=== PATIENT | female | born 1995 | race Caucasian/White ===

== ENCOUNTER 2017-01-22 13:46 | Emergency (ER) | payer OTHER ==
[2017-01-22 13:51] VITALS: BP 130/62; PULSE 94; RESP 20; TEMP 97.5
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
--- NOTE | 2017-01-22 14:52 | XR ---
EXAMINATION TYPE: XR knee complete RT DATE OF EXAM: 01/22/2017 2:27 PM COMPARISON: NONE HISTORY: Pain and injury TECHNIQUE: 3 views FINDINGS: I see no fracture nor dislocation. Joint spaces are normal. There is no sign of joint effus ion. IMPRESSION: Normal right knee.
== END 2017-01-22 14:58 | disposition home or self-care (01) ==
LOC: EC 13:46
DX: M25.561 Pain in right knee (principal); Z87.891 Personal history of nicotine dependence; Z88.5 Allergy status to narcotic agent
CPT/HCPCS: 99283

== ENCOUNTER → 2017-06-06 | Outpatient (CLI) | payer OTHER ==
--- NOTE | 2017-06-06 08:58 | US ---
EXAMINATION TYPE: US abdomen complete DATE OF EXAM: 06/06/2017 COMPARISON: Previous study dated 01/22/2015. CLINICAL HISTORY: Abdominal Pain R10.84, Constipation K59.01. EXAM MEASUREMENTS: Liver Length: 12.1 cm Gallbladder Wall: 0.1 cm CBD: 0.3 cm Spleen: 9.1 cm Right Kidney: 10.6 x 3.3 x 4.8 cm Left Kidney: 11.2 x 4.9 x 5.2 cm Pancreas: visualized portions wnl Liver: wnl Gallbladder: no stones seen Evidence for sonographic French's sign: No CBD: wnl Spleen: wnl Right Kidney: No hydronephrosis or masses seen Left Kidney: No hydronephrosis or masses seen Upper IVC: wnl Abd Aorta: wnl Limited views of the pancreas are normal. The liver is normal in size without biliary dilatation. The gallbladder is normal without cholelithiasis. The gallbladder wall measures 1.3 mm. The distal co mmon hepatic duct measures 2.7 mm. The spleen is normal in size. Both kidneys appear normal. Visualized portions of aorta and IVC are normal. IMPRESSION: NORMAL ABDOMINAL ULTRASOUND.
== END | disposition home or self-care (01) ==
LOC: RADUSWWP 08:26
PROVIDERS: ATTEND Family Medicine
DX: R10.84 Generalized abdominal pain (principal); K59.01 Slow transit constipation
CPT/HCPCS: 76700

== ENCOUNTER → 2017-09-28 | Outpatient (CLI) | payer OTHER ==
--- NOTE | 2017-09-28 15:11 | CT ---
EXAMINATION TYPE: CT abdomen pelvis wo con DATE OF EXAM: 09/28/2017 COMPARISON: NONE HISTORY: Patient complains of LLQ pain, nausea, and microscopic hematuria. CT DLP: 1054 mGycm Automated exposure control for dose reduction was used. TECHNIQUE: Helical acquisition of images was performed from the lung bases through the pelvis. FINDINGS: LUNG BASES: No significant abnormality is appreciated. LIVER/GB: No significant abnormality is appreciated. PANCREAS: No significant abnormality is seen. SPLEEN: No significant abnormality is seen. ADRENALS: No significant abnormality is seen. KIDNEYS: Right kidney: There are 5 calcifications all measuring less than 5 mm. No hydronephrosis. Left kidney: There are 3 calcifications all measuring less than 5 mm. FREE AIR: No free air is visualized URINARY BLADDER: No significant abnormality is seen. ADENOPATHY: None visualized. OSSEOUS STRUCTURES: No significant abnormality is seen. BOWEL: No significant abnormality is seen. Appendix normal. OTHER: Trace amount of fluid in the pelvis. Soft tissue nodule on the right may represent a small ova bishop cyst measuring 2 cm. A follow-up ultrasound could be obtained. IMPRESSION: 1. Bilateral nephrolithiasis with no hydronephrosis. 2 possible ovarian cyst correlate with pelvic ul trasound as clinically warranted. Previous ultrasound 2016 didn't demonstrate an ovarian cyst.
== END | disposition home or self-care (01) ==
LOC: RADCTMAIN 14:31
PROVIDERS: ATTEND Physician Assistant
DX: N20.0 Calculus of kidney (principal); R10.824 Left lower quadrant rebound abdominal tenderness
CPT/HCPCS: 74176

== ENCOUNTER → 2018-04-19 | Outpatient (CLI) | payer BC ==
--- NOTE | 2018-04-19 13:59 | US ---
EXAMINATION TYPE: US abdomen complete DATE OF EXAM: 04/19/2018 COMPARISON: 06/06/2017 CLINICAL HISTORY: [id number] and pelvic pain R10.12Left upper quad. Left flank pain, nausea EXAM MEASUREMENTS: Liver Length: 13.4 cm Gallbladder Wall: 0.3 cm CBD: 0.2 cm Spleen: 9.2 cm Right Kidney: 10.1 x 4.0 x 4.6 cm Left Kidney: 10.3 x 4.9 x 4.1 cm Pancreas: Tail obscured by overlying bowel gas Liver: wnl Gallbladder: no evidence of stones Evidence for sonographic French's sign: no CBD: appears wnl Spleen: wnl Right Kidney: non-obstructing stone = 0.6cm mid/lower pole Left Kidney: non-obstructing stone mid = 0.7cm Upper IVC: wnl Abd Aorta: wnl The liver is homogenous. The intrahepatic portion of the IVC and proximal abdominal aorta are within normal limits. There is no evidence of cholelithiasis. Common bile duct is unremarkable. The visu alized portions of the pancreas are homogenous. The spleen is unremarkable. Kidneys are symmetric a nd free of hydronephrosis. No renal lesions are seen. IMPRESSION: 1. Nonobstructing nephrolithiasis.
== END | disposition home or self-care (01) ==
LOC: RADUSWWP 13:09
PROVIDERS: ATTEND Family Medicine
DX: N20.0 Calculus of kidney (principal); R10.12 Left upper quadrant pain
CPT/HCPCS: 76700

== ENCOUNTER 2019-03-17 17:39 | Emergency (ER) | payer BC ==
[2019-03-17 17:46] VITALS: BP 120/70; RESP 18; TEMP 98.4
[2019-03-17] MEDS ORDERED: SODIUM CHLORIDE 0.9% 1,000 ML IV ONE (18:05)
--- NOTE | 2019-03-17 18:13 | ED ---
Female Urogenital HPI - General Chief complaint: Vaginal Bleeding Stated complaint: /bleeding Time Seen by Provider: 03/17/19 17:49 Source: patient Mode of arrival: ambulatory Limitations: no limitations - History of Present Illness Initial comments: Patient is a 23-year-old female presenting for vaginal bleeding and . The patient states that she found out 3 days ago that she was after being seen at another hospital for chest pain. She currently denies any chest pain but states that about an hour prior to presentation, she started having vaginal bleeding. She denies any abdominal pain or other vaginal discharge. She denies any nausea/I/diarrhea or fevers/chills. She also states that she has not seen an OB doctor for this. - Related Data Previous Rx's Medication Instructions Recorded Ondansetron Odt [Zofran Odt] 4 mg PO Q8HR PRN #12 tab 02/10/16 Allergies Allergy/AdvReac Type Severity Reaction Status Date / Time acetaminophen [From Vicodin] AdvReac Nausea & Verified 03/17/19 17:46 Vomiting hydrocodone bitartrate AdvReac Nausea & Verified 03/17/19 17:46 [From Vicodin] Vomiting morphine AdvReac Nausea & Verified 03/17/19 17:46 Vomiting Review of Systems ROS Statement: Those systems with pertinent positive or pertinent negative responses have been documented in the HPI. Constitutional: Negative for chills, fatigue and fever. HENT: Negative for congestion. Respiratory: Negative for chest tightness, shortness of breath and wheezing. Negative for cough Cardiovascular: Negative for chest pain and palpitations. Gastrointestinal: Negative for abdominal pain. Negative for abdominal distention, diarrhea, nausea and vomiting. Genitourinary: Negative for dysuria. Positive for vaginal bleeding Musculoskeletal: Negative for back pain, neck pain and neck stiffness. Skin: Negative for color change. Neurological: Negative for dizziness, speech difficulty, weakness and light- headedness. Psychiatric/Behavioral: Negative for agitation and confusion. Negative for anxiety ROS Other: All systems not noted in ROS Statement are negative. Past Medical History Past Medical History: No Reported History History of Any Multi-Drug Resistant Organisms: None Reported Past Surgical History: No Surgical Hx Reported Past Psychological History: No Psychological Hx Reported Smoking Status: Former smoker Past Alcohol Use History: None Reported Past Drug Use History: None Reported General Exam - General Exam Comments Initial Comments: Constitutional: Pt appears well-developed and well-nourished. No distress. Head: Normocephalic and atraumatic. Eyes: EOM are normal. Neck: Normal range of motion. Neck supple. Cardiovascular: Tachycardia present, regular rhythm, S1 normal, S2 normal and normal heart sounds. Exam reveals no gallop and no friction rub. No murmur heard. Pulmonary/Chest: Effort normal and breath sounds normal. No tachypnea and no bradypnea. No respiratory distress. No wheezes or rales noted. Abdominal: Soft. Bowel sounds are normal. Pt exhibits no shifting dullness, no distension, no pulsatile liver, no fluid wave, no abdominal bruit and no ascites. There is no rigidity, no rebound, no guarding, no tenderness at McBu rney's point and negative French's sign. There is no tenderness. Musculoskeletal: Normal range of motion. Neurological: Pt is alert and oriented to person, place, and time. No cranial nerve deficit. Skin: Skin is warm and dry. No rash noted. Pt is not diaphoretic. No erythema. No pallor. Psychiatric: Pt has a normal mood and affect. Pt behavior is normal. Thought content normal. Limitations: no limitations Course Vital Signs 03/17/19 17:43 Temperature 98.4 F Pulse Rate 107 H Respiratory 18 Rate Blood Pressure 120/70 O2 Sat by Pulse 99 Oximetry Medical Decision Making - Medical Decision Making Laboratory studies showed a hemoglobin was stable at 15.2 and there is no evidence of urinary tract infection, acute kidney injury and beta hCG was less than 2.4. Because of this, ultrasound was not performed and patient was advised to follow up with PCP/global creative chairman in the next couple days as this vaginal bleeding could represent a spontaneous that is nearly completed or abnormal menorrhea and she does have a history of PCOS.. - Lab Data Result diagrams: 03/17/19 18:45 03/17/19 18:45 Lab Results 03/17/19 03/17/19 03/17/19 Range/Units 18:45 18:45 18:45 WBC 9.8 (3.8-10.6) k/uL RBC 5.15 (3.80-5.40) m/uL Hgb 15.2 (11.4-16.0) gm/dL Hct 47.3 H (34.0-46.0) % MCV 91.8 (80.0-100.0) fL MCH 29.6 (25.0-35.0) pg MCHC 32.2 (31.0-37.0) g/dL RDW 13.9 (11.5-15.5) % Plt Count 410 (150-450) k/uL Neutrophils % 70 % Lymphocytes % 20 % Monocytes % 4 % Eosinophils % 3 % Basophils % 1 % Neutrophils # 6.9 (1.3-7.7) k/uL Lymphocytes # 2.0 (1.0-4.8) k/uL Monocytes # 0.4 (0-1.0) k/uL Eosinophils # 0.3 (0-0.7) k/uL Basophils # 0.1 (0-0.2) k/uL PT 9.8 (9.0-12.0) sec INR 0.9 (<1.2) APTT 25.2 (22.0-30.0) sec Sodium 140 (137-145) mmol/L Potassium 4.3 (3.5-5.1) mmol/L Chloride 105 (98-107) mmol/L Carbon Dioxide 26 (22-30) mmol/L Anion Gap 9 mmol/L BUN 11 (7-17) mg/dL Creatinine 0.74 (0.52-1.04) mg/dL Est GFR (CKD-EPI)AfAm >90 (>60 ml/min/1.73 sqM) Est GFR (CKD-EPI)NonAf >90 (>60 ml/min/1.73 sqM) Glucose 80 (74-99) mg/dL Calcium 10.0 (8.4-10.2) mg/dL HCG, Quant <2.4 mIU/mL Urine Color Urine Appearance (Clear) Urine pH (5.0-8.0) Ur Specific [place] (1.001-1.035) Urine Protein (Negative) Urine Glucose (UA) (Negative) Urine Ketones (Negative) Urine Blood (Negative) Urine Nitrite (Negative) Urine Bilirubin (Negative) Urine Urobilinogen (<2.0) mg/dL Ur Leukocyte Esterase (Negative) Urine RBC (0-5) /hpf Urine WBC (0-5) /hpf Ur Squamous Epith Cells (0-4) /hpf Urine Bacteria (None) /hpf Urine Mucus (None) /hpf Blood Type Blood Type Recheck Antibody Screen Spec Expiration Date 03/17/19 03/17/19 Range/Units 18:45 19:06 WBC (3.8-10.6) k/uL RBC (3.80-5.40) m/uL Hgb (11.4-16.0) gm/dL Hct (34.0-46.0) % MCV (80.0-100.0) fL MCH (25.0-35.0) pg MCHC (31.0-37.0) g/dL RDW (11.5-15.5) % Plt Count (150-450) k/uL Neutrophils % % Lymphocytes % % Monocytes % % Eosinophils % % Basophils % % Neutrophils # (1.3-7.7) k/uL Lymphocytes # (1.0-4.8) k/uL Monocytes # (0-1.0) k/uL Eosinophils # (0-0.7) k/uL Basophils # (0-0.2) k/uL PT (9.0-12.0) sec INR (<1.2) APTT (22.0-30.0) sec Sodium (137-145) mmol/L Potassium (3.5-5.1) mmol/L Chloride (98-107) mmol/L Carbon Dioxide (22-30) mmol/L Anion Gap mmol/L BUN (7-17) mg/dL Creatinine (0.52-1.04) mg/dL Est GFR (CKD-EPI)AfAm (>60 ml/min/1.73 sqM) Est GFR (CKD-EPI)NonAf (>60 ml/min/1.73 sqM) Glucose (74-99) mg/dL Calcium (8.4-10.2) mg/dL HCG, Quant mIU/mL Urine Color Light Yellow Urine Appearance Clear (Clear) Urine pH 6.5 (5.0-8.0) Ur Specific [place] 1.006 (1.001-1.035) Urine Protein Negative (Negative) Urine Glucose (UA) Negative (Negative) Urine Ketones Negative (Negative) Urine Blood Small H (Negative) Urine Nitrite Negative (Negative) Urine Bilirubin Negative (Negative) Urine Urobilinogen <2.0 (<2.0) mg/dL Ur Leukocyte Esterase Trace H (Negative) Urine RBC <1 (0-5) /hpf Urine WBC 5 (0-5) /hpf Ur Squamous Epith Cells 2 (0-4) /hpf Urine Bacteria Rare H (None) /hpf Urine Mucus Rare H (None) /hpf Blood Type O Positive Blood Type Recheck CABO Indicated Antibody Screen NEGATIVE Spec Expiration Date 03/20/2019 - 2341 Disposition Clinical Impression: Vaginal bleeding Disposition: HOME SELF-CARE Condition: Good Instructions (If sedation given, give patient instructions): Menstruation (ED) Is patient prescribed a controlled substance at d/c from ED?: No Referrals: None,Stated [Primary Care Provider] - 1-2 days Time of Disposition: 19:54
[2019-03-17 19:08] LABS: Basophils # (A) 0.1 k/uL (0-0.2); Basophils % (A) 1 %; Eosinophils # (A) 0.3 k/uL (0-0.7); Eosinophils % (A) 3 %; HCT 47.3 % (34.0-46.0); HGB 15.2 gm/dL (11.4-16.0); Lymphocytes % (A) 20 %; MCH 29.6 pg (25.0-35.0); MCHC 32.2 g/dL (31.0-37.0); MCV 91.8 fL (80.0-100.0); Mean Platelet Volume 6.9; Monocytes # (A) 0.4 k/uL (0-1.0); Monocytes % (A) 4 %; Neutrophils # (A) 6.9 k/uL (1.3-7.7); Neutrophils % (A) 70 %; Platelet Count 410 k/uL (150-450); RBC 5.15 m/uL (3.80-5.40); RDW 13.9 % (11.5-15.5); WBC 9.8 k/uL (3.8-10.6)
[2019-03-17 19:18] LABS: Anion Gap 9 mmol/L; Blood Urea Nitrogen 11 mg/dL (7-17); Carbon Dioxide 26 mmol/L (22-30); Chloride 105 mmol/L (98-107); Glucose 80 mg/dL (74-99); Potassium 4.3 mmol/L (3.5-5.1); Sodium 140 mmol/L (137-145)
[2019-03-17 19:32] LABS: Appearance,Urine Clear (Clear); Bacteria,Urine Rare /hpf; Bilirubin,Urine Negative (Negative); Blood,Urine Small (Negative); Color,Urine Light Yellow; Glucose,Urine (UA) Negative (Negative); Ketones,Urine Negative (Negative); Leukocyte Esterase,Urine Trace (Negative); Mucus,Urine Rare /hpf; Nitrite,Urine Negative (Negative); PH, Urine 6.5 (5.0-8.0); Protein,Urine Negative (Negative); RBC,Urine <1 /hpf (0-5); Specific Gravity,Urine 1.006 (1.001-1.035); Squamous Epithelial Cell,Urine 2 /hpf (0-4); Urobilinogen,Urine <2.0 mg/dL (<2.0); WBC,Urine 5 /hpf (0-5)
[2019-03-17 19:43] LABS: HCG,Quantitative Serum <2.4 mIU/mL
[2019-03-17 19:48] LABS: INR 0.9 (<1.2); Partial Thromboplastin Time 25.2 sec (22.0-30.0); Prothrombin Time 9.8 sec (9.0-12.0)
[2019-03-17 20:04] VITALS: PULSE 98
== END 2019-03-17 20:04 | disposition home or self-care (01) ==
LOC: EC 17:39
DX: O20.9 Hemorrhage in early pregnancy, unspecified (principal); O99.89 Other specified diseases and conditions complicating pregnancy, childbirth and the puerperium; R00.0 Tachycardia, unspecified; Z3A.01 Less than 8 weeks gestation of pregnancy; Z87.891 Personal history of nicotine dependence; Z88.5 Allergy status to narcotic agent; Z88.6 Allergy status to analgesic agent
CPT/HCPCS: 36415; 80048; 81001; 84702; 85025; 85610; 85730; 86850; 86900; 86901; 96360; 99284

== ENCOUNTER 2021-04-08 18:27 | Outpatient (CLI) | payer BC ==
[2021-04-08] MEDS ORDERED: LABETALOL 100 MG TAB PO STA (19:08)
[2021-04-08 19:33] LABS: Appearance,Urine Cloudy (Clear); Bacteria,Urine Rare /hpf; Bilirubin,Urine Negative (Negative); Blood,Urine Small (Negative); Budding Yeast,Urine Occasional /hpf; Color,Urine Yellow; Glucose,Urine (UA) Negative (Negative); Hyaline Casts,Urine 7 /lpf (0-2); Ketones,Urine Negative (Negative); Leukocyte Esterase,Urine Negative (Negative); Mucus,Urine Rare /hpf; Nitrite,Urine Negative (Negative); Protein,Urine 3+ (Negative); RBC,Urine 2 /hpf (0-5); Specific Gravity,Urine 1.015 (1.001-1.035); Squamous Epithelial Cell,Urine 8 /hpf (0-4); Urobilinogen,Urine <2.0 mg/dL (<2.0); WBC,Urine 8 /hpf (0-5)
[2021-04-08 19:37] LABS: Basophils % (A) 0 %; Eosinophils % (A) 0 %; HCT 46.5 % (34.0-46.0); HGB 14.9 gm/dL (11.4-16.0); Lymphocytes # (A) 2.1 k/uL (1.0-4.8); Lymphocytes % (A) 16 %; MCH 28.6 pg (25.0-35.0); MCV 89.1 fL (80.0-100.0); Mean Platelet Volume 7.7; Monocytes # (A) 0.6 k/uL (0-1.0); Monocytes % (A) 4 %; Neutrophils # (A) 10.5 k/uL (1.3-7.7); Neutrophils % (A) 78 %; Platelet Count 307 k/uL (150-450); RBC 5.22 m/uL (3.80-5.40); RDW 14.6 % (11.5-15.5); WBC 13.5 k/uL (3.8-10.6)
[2021-04-08 19:41] LABS: Creatinine,Urine Random 96.5 mg/dL
[2021-04-08 19:44] LABS: ALT 14 U/L (4-34); AST 27 U/L (14-36); African American GFR (CKD) >90 (>60 ml/min/1.73 sqM); Blood Urea Nitrogen 13 mg/dL (7-17); LDH 633 U/L (313-618); Non-African American GFR(CKD) >90 (>60 ml/min/1.73 sqM)
[2021-04-08] MEDS ORDERED: hydrALAZINE HCL 20 MG/ML 1 ML VIAL IV ONE (20:22)
[2021-04-08] MEDS ORDERED: CALCIUM GLUCONATE 1 GM/10 ML VIAL IV PRN (20:41)
[2021-04-08] MEDS ORDERED: hydrALAZINE HCL 20 MG/ML 1 ML VIAL IVP PRN ×2 (20:41)
[2021-04-08] MEDS ORDERED: LABETALOL 5 MG/ML VIAL MDV IVP PRN ×2 (20:41)
[2021-04-08] MEDS ORDERED: MAGNESIUM SULFATE-WATER PMX 4 GM in WATER FOR INJECTION 1 100ML.BAG IVPB ONE (20:41)
[2021-04-08] MEDS ORDERED: BETAMET ACET-BETAMETH SOD PHOS 6 MG/ML MDV IM SCH (20:45)
[2021-04-08] MEDS ORDERED: MAGNESIUM SULFATE-WATER PMX 20 GM in WATER FOR INJECTION 1 500ML.BAG IV SCH (20:45)
--- NOTE | 2021-04-08 21:35 | P.HPOB ---
History of Present Illness H&P Date: 04/08/21 Chief Complaint: Hypertension This is a 25-year-old 2 para 0010 woman with an estimated due date of 05/22/2021 based on LMP consistent with 7 week ultrasound. She presents at 33 weeks' gestation complaining of increased swelling in her face and elevated blood pressure earlier today at work. 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 She returned home and proceeded to labor and delivery triage this evening. Upon evaluation in labor and delivery triage she was noted to be hypertensive with blood pressures ranging from the 150/90 to 185/108. She has no previous history of hypertension in the . She reports feeling "not right" Throughout the day but denies specifically headaches, visual changes, nausea, vomiting, abdominal pain, vaginal bleeding or contractions. Upon further evaluation she was found to have 3+ protein on urinalysis and a protein creatinine ratio that lab reports is too high to calculate. Uric acid is 8.0, LDH 633. Platelets 307 and normal AST and ALTs. Obstetric history: Spontaneous miscarriage first trimester 2015 Laboratory data: Blood type O+, antibody screen negative, rubella immune, VDRL nonreactive, hepatitis B surface antigen negative, HIV negative, gonorrhea and clinic cultures negative, 1 hour glucose tolerance testing 149, three-hour glucose tolerance testing within normal limits. Review of Systems Constitutional: Reports fatigue, Denies chronic headaches Eyes: denies blurred vision, denies diplopia, denies loss of peripheral vision, denies loss of vision, denies tunnel vision/blind spots Cardiovascular: Denies chest pain, Denies irregular heart beat, Denies lightheadedness, Denies palpitations, Denies shortness of breath Respiratory: Reports snoring Gastrointestinal: Denies abdominal pain, Denies BRBPR, Denies heartburn, Denies nausea, Denies vomiting Genitourinary: Denies abnormal vaginal bleeding, Denies dysuria Musculoskeletal: Reports low back pain Integumentary: Denies rash Neurological: Denies double vision, Denies visual changes Psychiatric: Reports depression Hematologic/Lymphatic: Denies easy bleeding, Denies easy bruising Past Medical History Past Medical History: No Reported History Additional Past Medical History / Comment(s): Depression, obesity, PCO S History of Any Multi-Drug Resistant Organisms: None Reported Additional Past Surgical History / Comment(s): [place] teeth removal Past Anesthesia/Blood Transfusion Reactions: No Reported Reaction Past Psychological History: Anxiety, Depression Smoking Status: Never smoker Past Alcohol Use History: None Reported Past Drug Use History: None Reported Medications and Allergies Home Medications Medication Instructions Recorded Confirmed Type Ondansetron Odt [Zofran Odt] 4 mg PO Q8HR PRN #12 tab 02/10/16 Rx Allergies Allergy/AdvReac Type Severity Reaction Status Date / Time acetaminophen [From Vicodin] AdvReac Nausea & Verified 04/08/21 18:48 Vomiting hydrocodone bitartrate AdvReac Nausea & Verified 04/08/21 18:48 [From Vicodin] Vomiting morphine AdvReac Nausea & Verified 04/08/21 18:48 Vomiting Exam Intake and Output 04/08/21 04/08/21 04/08/21 06:59 14:59 22:59 Other: Weight 107.501 kg This is an obese, female who is visibly gravid. No obvious distress. HEENT exam is normal for some dermatitis of the lower face. No palpable thyromegaly or lymphadenopathy. The lungs are clear to auscultation bilaterally and the heart is a regular rate and rhythm. The abdomen is obese, soft and gravid with fundal height consistent with gestational age. Extremities with 2+ pitting edema, 3+ deep tendon reflexes and no clonus. Mood and affect normal. heart tones are category 1. No contractions. Results Result Diagrams: 04/08/21 19:25 04/08/21 19:25 Abnormal Lab Results - Last 24 Hours (Table) 04/08/21 04/08/21 04/08/21 Range/Units 18:30 19:25 19:25 WBC 13.5 H (3.8-10.6) k/uL Hct 46.5 H (34.0-46.0) % Neutrophils # 10.5 H (1.3-7.7) k/uL Uric Acid 8.0 H (3.7-7.4) mg/dL Lactate Dehydrogenase 633 H (313-618) U/L Urine Appearance Cloudy H (Clear) Urine Protein 3+ H (Negative) Urine Blood Small H (Negative) Urine WBC 8 H (0-5) /hpf Ur Squamous Epith Cells 8 H (0-4) /hpf Urine Bacteria Rare H (None) /hpf Hyaline Casts 7 H (0-2) /lpf Urine Mucus Rare H (None) /hpf Urine Yeast (Budding) Occasional H (None) /hpf Assessment and Plan (1) Severe preeclampsia Current Visit: Yes Status: Acute Code(s): O14.10 - SEVERE PRE-ECLAMPSIA, UNSPECIFIED TRIMESTER SNOMED Code(s): 00007098 (2) 33 weeks gestation of Current Visit: Yes Status: Acute Code(s): Z3A.33 - 33 WEEKS GESTATION OF SNOMED Code(s): 19048352 (3) Obesity Current Visit: Yes Status: Acute Code(s): E66.9 - OBESITY, UNSPECIFIED SNOMED Code(s): 612252044 Plan: This is a 25-year-old 2 para 0 woman at 33-5/7 weeks gestation with severe preeclampsia based on blood pressure criteria. She has 3+ protein on urine dip and protein creatinine ratio was not calculated secondary to elevated protein per the lab. She has responded to IV hydralazine with blood pressures currently in the 140s over 90s. She has been loaded on 4 mg of magnesium sulfate. She has received her first dose of 12 mg of Celestone. Group B strep status is unknown. status is currently reassuring by external monitoring. No evidence of labor. Secondary to severe preeclampsia remote from term I have recommended she be transferred to a facility with NICU for probable delivery. Risks of the transfer were reviewed with the patient and include worsening high blood pressure and eclampsia. I believe this risk to be low on her current treatments. I discussed the case with the maternal medicine attending at [facility], Dr. Nicole, who accepts the patient in transport. Please contact my office in the morning for us to fax her complete record as it is not available in its entirety on labor and delivery. Office number is [phone]. Time with Patient: Greater than 30
[2021-04-08 23:36] VITALS: RESP 16
[2021-04-08 23:37] VITALS: BP 134/68; PULSE 86
[2021-04-08 23:53] VITALS: TEMP 98.1
== END 2021-04-08 22:30 ==
LOC: FBPOP 18:27
PROVIDERS: ATTEND Obstetrics & Gynecology Obstetrics
DX: O14.13 Severe pre-eclampsia, third trimester (principal); O99.213 Obesity complicating pregnancy, third trimester; E66.9 Obesity, unspecified; Z3A.33 33 weeks gestation of pregnancy; Z88.6 Allergy status to analgesic agent; Z88.5 Allergy status to narcotic agent; F32.9 Major depressive disorder, single episode, unspecified; F41.9 Anxiety disorder, unspecified
CPT/HCPCS: 82570; 84156; 82565; 83615; 84450; 84460; 84520; 84550; 85025; 81001; J0360; J3475 ×2; J0702

== ENCOUNTER 2022-09-18 16:58 | Emergency (ER) | payer BC ==
[2022-09-18] MEDS ORDERED: ACETAMINOPHEN TAB 325 MG TAB PO STA (18:00)
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
[2022-09-18 19:18] LABS: Basophils % (A) 0 %; Eosinophils % (A) 0 %; HCT 40.8 % (34.0-46.0); HGB 13.6 gm/dL (11.4-16.0); Lymphocytes # (A) 1.2 k/uL (1.0-4.8); Lymphocytes % (A) 9 %; MCH 30.1 pg (25.0-35.0); MCHC 33.4 g/dL (31.0-37.0); MCV 90.1 fL (80.0-100.0); Mean Platelet Volume 7.4; Monocytes # (A) 0.5 k/uL (0-1.0); Monocytes % (A) 4 %; Neutrophils # (A) 11.4 k/uL (1.3-7.7); Neutrophils % (A) 87 %; Platelet Count 360 k/uL (150-450); RBC 4.53 m/uL (3.80-5.40); WBC 13.2 k/uL (3.8-10.6)
[2022-09-18 19:31] LABS: ALT 16 U/L (4-34); AST 21 U/L (14-36); African American GFR (CKD) >90 (>60 ml/min/1.73 sqM); Albumin 3.7 g/dL (3.5-5.0); Alkaline Phosphatase 97 U/L (38-126); Anion Gap 12 mmol/L; Blood Urea Nitrogen 9 mg/dL (7-17); Calcium 9.4 mg/dL (8.4-10.2); Carbon Dioxide 23 mmol/L (22-30); Chloride 99 mmol/L (98-107); Glucose 77 mg/dL (74-99); Non-African American GFR(CKD) >90 (>60 ml/min/1.73 sqM); Potassium 4.1 mmol/L (3.5-5.1); Sodium 134 mmol/L (137-145); Total Bilirubin 0.2 mg/dL (0.2-1.3); Total Protein 6.9 g/dL (6.3-8.2)
[2022-09-18 19:38] LABS: INR 0.8 (<1.2); Partial Thromboplastin Time 21.5 sec (22.0-30.0); Prothrombin Time 9.5 sec (9.0-12.0)
--- NOTE | 2022-09-18 22:56 | US ---
EXAMINATION TYPE: US OB >= 14 wk fetus DATE OF EXAM: 09/18/2022 COMPARISON: None CLINICAL HISTORY: fall injury TECHNIQUE: GESTATIONAL AGE / DATING Physician Established: (15 weeks/5 days) EDC: 03-07-23 Dates by LMP: (15 weeks/5 days) EDC: 03-07-23 Dates by First Scan: not available Dates by Current Scan: (14 weeks/5 days) EDC: 03-14-23 SURVEY IUP: Single PLACENTA: Posterior 3.1 x 2.1 x 3.2 complex placental mass PREVIA: Low Lying NANCY: 11 cm CERVICAL LENGTH (transabdominal: norm > 3.0cm): 4.3 cm BIOMETRY PRESENTATION: Vertex BPD: 2.8 cm 15 weeks / 1 days HC: 10.6 cm 15 weeks / 0 days AC: 8.1 cm 14 weeks / 3 days FL: 1.5 cm 14 weeks / 4 days ESTIMATED WEIGHT IN GRAMS: 100 grams ESTIMATED WEIGHT IN LBS/OZ: 0 lbs. 4 oz. WEIGHT PERCENTAGE BASED ON ESTABLISHED DATES: <3% HC/AC: 1.3 FL/AC: 18.8 HEART RATE: 143 bpm RHYTHM: Normal MATERNAL WALL MEASUREMENT: 4.0 cm from skin to anterior uterine wall (if exam limited due to body hab itus). IMPRESSION: There is hypoechoic area measuring 2 x 2.5 cm in the placenta that could be a placental smallwood. No evid ence of placenta previa or abruption. The ultrasound gestational age is 14 weeks and 5 days.
[2022-09-18 23:32] VITALS: BP 105/60; PULSE 84; RESP 20; TEMP 98.2
== END 2022-09-18 23:30 | disposition home or self-care (01) ==
LOC: EC 16:58
DX: R55 Syncope and collapse (principal); J45.909 Unspecified asthma, uncomplicated; F12.90 Cannabis use, unspecified, uncomplicated; Z88.6 Allergy status to analgesic agent; Z88.5 Allergy status to narcotic agent; W19.XXXA Unspecified fall, initial encounter
CPT/HCPCS: 36415; 76805; 80053; 84484; 85025; 85610; 85730; 93005; 99285

== ENCOUNTER 2023-01-07 10:44 | Outpatient (CLI) | payer BC ==
[2023-01-07] MEDS: LACTATED RINGERS 1,000 ML IV SCH ×2 (11:41→12:40)
[2023-01-07 12:34] LABS: Appearance,Urine Cloudy (Clear); Bacteria,Urine Rare /hpf; Bilirubin,Urine Negative (Negative); Blood,Urine Large (Negative); Color,Urine Light Red; Glucose,Urine (UA) Negative (Negative); Ketones,Urine Trace (Negative); Leukocyte Esterase,Urine Small (Negative); Mucus,Urine Few /hpf; Nitrite,Urine Negative (Negative); Protein,Urine 1+ (Negative); RBC,Urine >182 /hpf (0-5); Specific Gravity,Urine 1.021 (1.001-1.035); Squamous Epithelial Cell,Urine 7 /hpf (0-4); Urobilinogen,Urine <2.0 mg/dL (<2.0); WBC,Urine 5 /hpf (0-5)
[2023-01-07 12:58] VITALS: BP 137/74; PULSE 107; RESP 16; TEMP 97.4
--- NOTE | 2023-03-06 10:06 | P.MSEPDOC ---
Presenting Problems - Arrival Data Date of Arrival on Unit: 01/07/23 Time of Arrival on Unit: 10:44 Mode of Transport: Ambulatory - Complaint OB-Reason for Admission/Chief Complaint: Observation/Evaluation Comment: Pt states bleeding when wiping and blood in toliet Medical History - Information : 2 Para: 1 Number of Living Children: 1 - Gestational Age Gestational Age by RACHEL (wks/days): 31 Weeks and 3 Days - History Complications: Prior Review of Systems - Review of Systems Constitutional: No problems Breast: No problems ENT: No problems Cardiovascular: No problems Respiratory: No problems Gastrointestinal: No problems Genitourinary: No problems Musculoskeletal: No problems Neurological: No problems Skin: No problems Comment: Pt denies dysuria; urine sample provided orion in color Vital Signs - Temperature Temperature: 97.4 F Temperature Source: Temporal Artery Scan - Pulse Right Sitting Brachial Pulse Rate: 107 Pulse Assessment Method: Automatic Cuff - Respirations Respiratory Rate: 16 Oxygen Delivery Method: Room Air O2 Sat by Pulse Oximetry: 100 - Blood Pressure Right Arm Sitting Blood Pressure: 137/74 Blood Pressure Mean: 95 Blood Pressure Source: Automatic Cuff Medical Screen Scoring - Cervical Exam Dilation (cm): 0 Effacement (%): 0 - Assessment - Baby A Baseline FHR: 150 Heart Rate - NICHD Category: Category I (Normal) NST: Reactive Physician Notification - Physician Notified Physician Notified Date: 01/07/23 Physician Notified Time: 11:40 Physician: Anastasiia Villanueva New Order Received: Yes - Notification Comment Comment: Spk c\Dr. Villanueva, advsd , 31 01/18, c/o bleeding and period like cramps x 3 hours. Sterile spec exam-no bleeding present, white discharge. Urine provided orion in color. Pt denies dysuria. Pt states recent GI illness, no N/V/D x 3 days. Ab soft & nontender; reactive FHT. Order rec'd to send UA, hydrate c\1L LR. 1240-Cld Dr. Villanueva to review UA and pt status. Order rec'd to send UA for C&S, d/c pt home c\orders to increase PO fluids and pelvic rest. Maternal Triage Index - Maternal Triage Index Presenting for scheduled procedure w/no complaint: No - Stat/Priority 1 Stat Priority 1: No - Urgent/Priority 2 Urgent Priority 2: No - Prompt/Priority 3 Prompt Priority 3: No - Non-Urgent/Priority 4 Non-Urgent Priority 4: Yes Criteria Met for Priority 4: Hematuria Disposition - Disposition OB Disposition: Discharge to home, Written follow up instructions reviewed Discharge Date: 01/07/23 Discharge Time: 12:50 I agree with the RN Medical Screening Exam: Yes Case reviewed; plan agreed upon as documented in EMR&OBIX.: Yes Diagnosis: DEHYDRATION
== END 2023-01-07 12:50 | disposition home or self-care (01) ==
LOC: FBPOP 10:44
PROVIDERS: ATTEND Obstetrics & Gynecology Obstetrics
DX: O99.283 Endocrine, nutritional and metabolic diseases complicating pregnancy, third trimester (principal); E86.0 Dehydration; O34.219 Maternal care for unspecified type scar from previous cesarean delivery; Z3A.31 31 weeks gestation of pregnancy; Z88.8 Allergy status to other drugs, medicaments and biological substances; Z88.5 Allergy status to narcotic agent; Z87.891 Personal history of nicotine dependence
CPT/HCPCS: 59025; 81001; 87086; 96360; 99213; 99214

== ENCOUNTER 2023-02-02 18:37 | Outpatient (CLI) | payer BC ==
[2023-02-02 20:33] LABS: Basophils % (A) 0 %; Eosinophils # (A) 0.1 k/uL (0-0.7); Eosinophils % (A) 1 %; HCT 35.7 % (34.0-46.0); HGB 11.6 gm/dL (11.4-16.0); Lymphocytes # (A) 2.1 k/uL (1.0-4.8); Lymphocytes % (A) 19 %; MCH 27.8 pg (25.0-35.0); MCHC 32.5 g/dL (31.0-37.0); MCV 85.5 fL (80.0-100.0); Mean Platelet Volume 7.2; Monocytes # (A) 0.5 k/uL (0-1.0); Monocytes % (A) 5 %; Neutrophils # (A) 8.2 k/uL (1.3-7.7); Neutrophils % (A) 74 %; Platelet Count 352 k/uL (150-450); RBC 4.17 m/uL (3.80-5.40); RDW 13.7 % (11.5-15.5); WBC 11.2 k/uL (3.8-10.6)
[2023-02-02 20:42] LABS: ALT 22 U/L (4-34); AST 22 U/L (14-36); African American GFR (CKD) >90 (>60 ml/min/1.73 sqM); Blood Urea Nitrogen 5 mg/dL (7-17); LDH 187 U/L (120-246); Magnesium 1.7 mg/dL (1.6-2.3); Non-African American GFR(CKD) >90 (>60 ml/min/1.73 sqM); Uric Acid 3.8 mg/dL (3.7-7.4)
[2023-02-02 20:48] LABS: Appearance,Urine Clear (Clear); Bilirubin,Urine Negative (Negative); Blood,Urine Moderate (Negative); Calcium Oxalate Crystals,Urine Occasional /hpf; Color,Urine Yellow; Glucose,Urine (UA) Negative (Negative); Ketones,Urine Negative (Negative); Leukocyte Esterase,Urine Negative (Negative); Mucus,Urine Rare /hpf; Nitrite,Urine Negative (Negative); PH, Urine 6.5 (5.0-8.0); Protein,Urine Negative (Negative); RBC,Urine 46 /hpf (0-5); Specific Gravity,Urine 1.012 (1.001-1.035); Squamous Epithelial Cell,Urine 1 /hpf (0-4); Urobilinogen,Urine <2.0 mg/dL (<2.0); WBC,Urine 1 /hpf (0-5)
[2023-02-02 20:51] LABS: Creatinine,Urine Random 84.6 mg/dL; Protein/Creatinine Ratio,Urine 0.225
[2023-02-02 20:53] LABS: Creatinine,Urine Random 84.7 mg/dL
[2023-02-02 21:37] LABS: INR 0.9 (<1.2); Partial Thromboplastin Time 22.3 sec (22.0-30.0); Prothrombin Time 9.3 sec (9.0-12.0)
[2023-02-02 22:00] VITALS: BP 140/80; PULSE 104; RESP 16; TEMP 97.3
--- NOTE | 2023-03-06 10:17 | P.MSEPDOC ---
Presenting Problems - Arrival Data Date of Arrival on Unit: 02/02/23 Time of Arrival on Unit: 18:37 Mode of Transport: Ambulatory - Complaint OB-Reason for Admission/Chief Complaint: PIH Comment: pt to triage co sudden swelling in legs and face that started around 1500. today, dizziness that started around 1200 today and pressure in chest since last night. Pt denies cough or sob Medical History - Information : 3 Para: 1 Term: 1 : 0 Abortions: Spontaneous or Elective: 1 Number of Living Children: 1 - Gestational Age Gestational Age by RACHEL (wks/days): 35 Weeks and 1 Days - History Comment: history of preeclampsia with previous Review of Systems - Review of Systems Constitutional: No problems Breast: No problems ENT: No problems Cardiovascular: No problems Respiratory: No problems Gastrointestinal: No problems Genitourinary: No problems Musculoskeletal: No problems Neurological: No problems Skin: No problems Vital Signs - Temperature Temperature: 97.3 F Temperature Source: Temporal Artery Scan - Pulse Pulse Oximetery Pulse Rate: 104 Pulse Assessment Method: Automatic Cuff - Respirations Respiratory Rate: 16 Oxygen Delivery Method: Room Air - Blood Pressure Right Arm Blood Pressure: 140/80 Blood Pressure Mean: 100 Blood Pressure Source: Automatic Cuff Medical Screen Scoring - Assessment - Baby A Baseline FHR: 135 Heart Rate - NICHD Category: Category I (Normal) NST: Reactive Physician Notification - Physician Notified Physician Notified Date: 02/02/23 Physician Notified Time: 19:28 Physician: Nohelia New Order Received: Yes - Notification Comment Comment: Dr. Richter called and reported on pt status, GA, G/P, pt hx of. preeclampsia, vital signs reviewed. Orders for 650mg PO tylenol, Draw [facility] labs, D/C home. and keep scheduled appointment with Dr. Villanueva tomorrow. Maternal Triage Index - Stat/Priority 1 Stat Priority 1: No - Urgent/Priority 2 Urgent Priority 2: No - Prompt/Priority 3 Prompt Priority 3: No - Non-Urgent/Priority 4 Non-Urgent Priority 4: Yes Criteria Met for Priority 4: pt to triage co sudden swelling in legs and face that started around 1500. today, dizziness that started around 1200 today and pressure in chest since last night. Pt denies cough or sob Disposition - Disposition OB Disposition: Discharge to home Discharge Date: 02/02/23 Discharge Time: 21:41 I agree with the RN Medical Screening Exam: Yes Case reviewed; plan agreed upon as documented in EMR&OBIX.: Yes Diagnosis: RELATED CONDITIONS, UNSPECIFIED, THIRD TRIMESTER
== END 2023-02-02 21:41 | disposition home or self-care (01) ==
LOC: FBPOP 18:37
PROVIDERS: ATTEND Obstetrics & Gynecology Obstetrics
DX: O26.893 Other specified pregnancy related conditions, third trimester (principal); Z3A.35 35 weeks gestation of pregnancy; R07.89 Other chest pain; R42 Dizziness and giddiness; Z87.59 Personal history of other complications of pregnancy, childbirth and the puerperium; Z88.8 Allergy status to other drugs, medicaments and biological substances; Z88.5 Allergy status to narcotic agent; Z87.891 Personal history of nicotine dependence
CPT/HCPCS: 36415; 59025; 81001; 82565; 82570; 83615; 83735; 84156; 84450; 84460; 84520; 84550; 85025; 85384; 85610; 85730; 99213

== ENCOUNTER 2023-03-02 09:51 | Inpatient (IN) | payer BC ==
[2023-03-02] MEDS ORDERED: OXYTOCIN 10 UNIT/ML 1 ML VIAL IM PRN ×2 (10:14→10:16)
[2023-03-02] MEDS ORDERED: METHYLERGONOVINE 0.2 MG/ML 1 ML AMP IM PRN ×2 (10:14→10:16)
[2023-03-02] MEDS ORDERED: TERBUTALINE 1 MG/ML VIAL SQ PRN (10:14)
[2023-03-02] MEDS ORDERED: TRANEXAMIC ACID IN NACL,ISO-OS 1,000 MG in EMPTY BAG 1 BAG IV PRN ×2 (10:14→10:16)
[2023-03-02] MEDS ORDERED: LIDOCAINE 0.5% (PF) 5 MG/ML (50 ML SDV) SQ PRN (10:14)
[2023-03-02] MEDS ORDERED: miSOPROStoL 200 MCG TAB PO PRN ×2 (10:14→10:16)
[2023-03-02] MEDS ORDERED: CARBOPROST TROMETHAMINE 250 MCG/ML 1 ML AMP IM PRN ×2 (10:14→10:16)
[2023-03-02] MEDS ORDERED: CITRIC ACID-SODIUM CITRATE 15 ML CUP PO ONE (10:16)
[2023-03-02] MEDS: LACTATED RINGERS 1,000 ML IV SCH ×2 (10:35→15:15)
[2023-03-02 10:48] LABS: Basophils % (A) 0 %; Eosinophils # (A) 0.1 k/uL (0-0.7); Eosinophils % (A) 0 %; HCT 36.2 % (34.0-46.0); HGB 12.1 gm/dL (11.4-16.0); Lymphocytes # (A) 1.7 k/uL (1.0-4.8); Lymphocytes % (A) 14 %; MCH 27.2 pg (25.0-35.0); MCHC 33.4 g/dL (31.0-37.0); MCV 81.6 fL (80.0-100.0); Mean Platelet Volume 7.3; Monocytes # (A) 0.5 k/uL (0-1.0); Monocytes % (A) 5 %; Neutrophils % (A) 78 %; Platelet Count 393 k/uL (150-450); RBC 4.43 m/uL (3.80-5.40); RDW 14.3 % (11.5-15.5); WBC 11.6 k/uL (3.8-10.6)
[2023-03-02] MEDS ORDERED: fentaNYL (PF) 50 MCG/ML 2 ML AMP ONE (12:00)
[2023-03-02] MEDS ORDERED: MORPHINE SULFATE (PF) 0.3 MG/0.3 ML SYR ONE (12:00)
[2023-03-02] MEDS ORDERED: OXYTOCIN 30 UNITS/500 ML NS BAG IV ONE (12:00)
[2023-03-02] MEDS ORDERED: ONDANSETRON 4 MG/2 ML VIAL ONE (12:00)
[2023-03-02] MEDS ORDERED: NALBUPHINE 10 MG/ML (10 ML MDV) ONE (12:00)
[2023-03-02] MEDS ORDERED: SIMETHICONE 80 MG CHEWABLE PO PRN (12:57)
[2023-03-02] MEDS ORDERED: diphenhydrAMINE 25 MG CAP PO PRN (12:57)
[2023-03-02] MEDS ORDERED: diphenhydrAMINE 50 MG/ML 1 ML VIAL IVP PRN ×2 (12:57)
[2023-03-02] MEDS ORDERED: ZOLPIDEM 5 MG TAB PO PRN (12:57)
[2023-03-02] MEDS ORDERED: diphenhydrAMINE 50 MG CAP PO PRN (12:57)
[2023-03-02] MEDS ORDERED: METOCLOPRAMIDE 5 MG/ML 2 ML VIAL IVP PRN (12:57)
[2023-03-02] MEDS ORDERED: ONDANSETRON 4 MG/2 ML VIAL IVP PRN (12:57)
[2023-03-02] MEDS ORDERED: NALOXONE 0.4 MG/ML 1 ML VIAL IV PRN ×2 (12:57→13:28)
[2023-03-02] MEDS ORDERED: OXYTOCIN 30 UNITS/500 ML NS 30 UNIT in SALINE 1 500ML.BAG IV SCH (13:00)
--- NOTE | 2023-03-02 13:03 | P.HPOB ---
History of Present Illness H&P Date: 03/02/23 Chief Complaint: IUP @ 39 weeks, h/o c section, family planning this is a 27-year-old that presents to labor and delivery at 39 and one sevenths weeks, estimated due date of 03/08 for scheduled repeat section with tubal ligation. Patient has a history of severe preeclampsia and a C- section at 34 weeks under general anesthesia. Patient has done well through this . Blood pressures have remained within the normal range. blood work should a blood type of O+, rubella status immune, hep [place] surface antigen negative, HIV negative, RPR is nonreactive, group beta strep cultures are negative. Review of Systems Constitutional: Denies chills, Denies fatigue, Denies fever Ears, nose, mouth and throat: Denies headache Cardiovascular: Reports leg edema Respiratory: Denies dyspnea Gastrointestinal: Denies constipation, Denies diarrhea, Denies nausea, Denies vomiting Genitourinary: Reports Past Medical History Past Medical History: Asthma Additional Past Medical History / Comment(s): Depression, obesity, PCO S History of Any Multi-Drug Resistant Organisms: None Reported Past Surgical History: Cholecystectomy Additional Past Surgical History / Comment(s): [place] teeth removal Past Anesthesia/Blood Transfusion Reactions: No Reported Reaction Past Psychological History: Anxiety, Depression Smoking Status: Former smoker Past Alcohol Use History: None Reported Past Drug Use History: Marijuana Medications and Allergies Home Medications Medication Instructions Recorded Confirmed Type Vit No.179/Iron/Folic 1 tab PO DAILY 11/22/22 03/02/23 History [ Tablet] Allergies Allergy/AdvReac Type Severity Reaction Status Date / Time acetaminophen [From Vicodin] AdvReac Nausea & Verified 02/22/23 10:59 Vomiting hydrocodone bitartrate AdvReac Nausea & Verified 02/22/23 10:59 [From Vicodin] Vomiting metformin AdvReac Swelling Verified 03/02/23 10:32 morphine AdvReac Nausea & Verified 02/22/23 10:59 Vomiting Exam Osteopathic Statement: *. No significant issues noted on an osteopathic structural exam other than those noted in the History and Physical/Consult. 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 Results Result Diagrams: 03/02/23 10:25 Abnormal Lab Results - Last 24 Hours (Table) 03/02/23 Range/Units 10:25 WBC 11.6 H (3.8-10.6) k/uL Neutrophils # 9.0 H (1.3-7.7) k/uL Assessment and Plan (1) 39 weeks gestation of Current Visit: Yes Status: Acute Code(s): Z3A.39 - 39 WEEKS GESTATION OF SNOMED Code(s): 58438712 (2) H/O section Current Visit: Yes Status: Acute Code(s): Z98.891 - HISTORY OF UTERINE SCAR FROM PREVIOUS SURGERY SNOMED Code(s): 421788058 (3) Family planning Current Visit: Yes Status: Acute Code(s): Z30.09 - ENCOUNTER FOR OTH GENERAL CNSL AND ADVICE ON CONTRACEPTION SNOMED Code(s): 546075500 Plan: 27-year-old at 39 and one sevenths weeks that presents for scheduled repeat section with tubal ligation. Patient is counseled on section and tubal ligation. Failure rates of tubal are discussed and patient states understanding. Patient requests tubal ligation for permanent st erilization and she states she is done with childbearing. Risser reviewed with patient including but not limited to infection, bleeding, damage to bladder, bowel, ureteric or injury. Patient states understanding. Patient is then taken back to the operating suite by anesthesia
--- NOTE | 2023-03-02 13:08 | P.OP ---
Date of Procedure: 03/02/23 Preoperative Diagnosis: IUP at 39 and one sevenths weeks, history of 1, desires repeat, family status complete Postoperative Diagnosis: same Procedure(s) Performed: repeat section with tubal ligation, [place] clips Anesthesia: spinal Surgeon: Anastasiia Villanueva Livestock Dealer #1: Christin Richter Estimated Blood Loss (ml): 1,013 IV fluids (ml): 700 Urine output (ml): 100 (clear yellow) Pathology: none sent Condition: stable Disposition: observation Indications for Procedure: history of 1, desires repeat with tubal ligation for permanent sterilization Operative Findings: arcuate uterus is appreciated, viable female infant delivered at 1227, weight of 6 lbs. 9 oz., Apgars of 9 and 9 at one and 5 minutes respectively. Ovaries appeared normal bilaterally Description of Procedure: patient was taken back to the operating suite where spinal anesthesia was found be adequate. She was prepped and draped in normal sterile fashion in the dorsal supine position. A Pfannenstiel skin incision was made with the scalpel and carried through to the underlying layer of fascia. The fascia was incised and extended laterally. The superior aspect of the fascial incision was then grasped with [place] clamps, elevated and underlying rectus muscle was dissected off sharply. The inferior aspect of the fascial incision was then grasped neto clamps, elevated and underlying rectus muscles dissected off sharply once again. The rectus muscles were in the midline the peritoneum was identified and entered. The bladder blade was inserted inserted into the pelvis. The bladder was noted to be free from the operating field therefore hysterotomy incision was made from the scalpel. The infant was encountered in a vertex p resentation amniotomy performed clear fluid was obtained. The was delivered via vacuum assist without difficulty, no pop offs during delivery. One pull was needed for delivery of the infant. Suction was disengaged the infant was completely delivered at 1227, the umbilical cords doubly clamped and cut and infant was handed to awaiting RN, spontaneous cry was noted. Cord blood was then taken. The placenta was then delivered manually and the uterus exteriorized and cleared of all clots and debris. The uterine incision was then closed with 0 Vicryl in a running locked fashion. A second imbricating suture of 0 Vicryl was performed. Bleeding was noted throughout the uterine incision therefore multiple [id number] sutures were used to obtain hemostasis. The uterus was then returned to the abdomen. Hysterotomy incision was inspected and a small amount of oozing was noted therefore Surgicel powder was placed along the hysterotomy incision. Patient was noted be uncomfortable during this portion of the procedure. The rectus muscles were then loosely reapproximated with the peritoneum. The rectus muscles were inspected and noted to be hemostatic. The fascia was then closed with 0 Vicryl in a running fashion from one lateral edge the midline and the other lateral edge the midline. The subcutaneous tissue was inspected and any points of bleeding were addressed with the Bovie. The subcutaneous tissue was closed with 3-0 Vicryl in a running fashion. The skin was closed with 4-0 Vicryl in a subcuticular fashion. Sterile dressing was applied. All counts were noted be correct 2 at the end of the delivery. Patient and tolerated delivery well and are resting comfortable he.
[2023-03-02] MEDS: ACETAMINOPHEN IV (For NPO) 1,000 MG in EMPTY BAG 1 BAG IVPB SCH (13:21)
[2023-03-02] MEDS: ACETAMINOPHEN TAB 500 MG TAB PO SCH (16:44)
[2023-03-02] MEDS: IBUPROFEN IV 800 MG in SODIUM CHLORIDE 0.9% 250 ML IV SCH (18:03)
[2023-03-02] MEDS: SENNOSIDES-DOCUSATE SODIUM 1 EACH TAB PO SCH (20:56)
[2023-03-02] MEDS: IBUPROFEN 600 MG TAB PO SCH (20:57)
[2023-03-03] MEDS: LACTATED RINGERS 1,000 ML IV SCH ×2 (00:35→00:36)
[2023-03-03] MEDS: ACETAMINOPHEN TAB 500 MG TAB PO SCH ×5 (00:37→20:53)
[2023-03-03] MEDS: ACETAMINOPHEN IV (For NPO) 1,000 MG in EMPTY BAG 1 BAG IVPB SCH (00:37)
[2023-03-03] MEDS: IBUPROFEN 600 MG TAB PO SCH ×3 (05:04→16:04)
[2023-03-03] MEDS: IBUPROFEN IV 800 MG in SODIUM CHLORIDE 0.9% 250 ML IV SCH ×2 (05:04→06:46)
--- NOTE | 2023-03-03 06:08 | P.PN ---
Progress Note - Text Date: 03/03/2023 Time: 05:30 The patient is status post section Vital signs stable VAS: 0-10 Patient has no complaints of pain. The patient incurred some minimal itching yesterday, this itching is now subsiding. Pain meds to be managed by service.
[2023-03-03 07:26] LABS: Basophils % (A) 0 %; Eosinophils # (A) 0.1 k/uL (0-0.7); Eosinophils % (A) 1 %; HCT 31.8 % (34.0-46.0); HGB 10.3 gm/dL (11.4-16.0); Lymphocytes # (A) 1.6 k/uL (1.0-4.8); Lymphocytes % (A) 16 %; MCHC 32.4 g/dL (31.0-37.0); MCV 83.4 fL (80.0-100.0); Mean Platelet Volume 7.3; Monocytes # (A) 0.6 k/uL (0-1.0); Monocytes % (A) 6 %; Neutrophils # (A) 7.5 k/uL (1.3-7.7); Neutrophils % (A) 75 %; Platelet Count 336 k/uL (150-450); RBC 3.81 m/uL (3.80-5.40); RDW 14.2 % (11.5-15.5); WBC 9.9 k/uL (3.8-10.6)
[2023-03-03] MEDS: SENNOSIDES-DOCUSATE SODIUM 1 EACH TAB PO SCH ×2 (08:25→20:54)
[2023-03-03] MEDS ORDERED: PRENATAL VIT-IRON-FOLIC ACID 1 EACH TABLET PO SCH (09:00)
--- NOTE | 2023-03-03 09:39 | P.PNOBGPC ---
Subjective - Subjective Principal diagnosis: POD 1 RCS with TL Interval history: Patient is doing well this am. she states lochia is moderate, pain is controlled with po motrin, tylenol. she is tolerating a regular diet without nausea or vomitting. she had a spontaneous void after ramos removal. Patient reports: Reports appetite normal, Reports voiding normally, Reports pain well controlled, Reports ambulating normally [place]: doing well Objective - Vital Signs Latest vital signs: Vital Signs Temp Pulse Resp BP Pulse Ox 03/03/23 07:45 98.7 F 85 18 116/76 99 03/03/23 04:00 98.4 F 72 18 130/77 03/03/23 00:00 98.0 F 89 18 123/77 03/02/23 20:00 97.8 F 87 18 123/78 03/02/23 16:28 18 03/02/23 16:00 97.5 F L 85 18 121/77 97 03/02/23 15:00 85 16 135/65 100 03/02/23 14:30 89 16 132/66 100 03/02/23 14:28 16 100 03/02/23 14:00 86 17 143/70 100 03/02/23 13:45 88 16 135/65 100 03/02/23 13:30 82 16 143/65 100 03/02/23 13:28 16 100 03/02/23 13:15 86 16 139/67 100 03/02/23 13:00 97.8 F 81 16 142/71 100 03/02/23 10:14 97.3 F L 86 16 142/86 98 Intake and Output 03/02/23 03/03/23 03/03/23 22:59 06:59 14:59 Output Total 210 600 Balance -210 -600 Output: Urine 100 600 Estimated Blood Loss 55 Output, Quantitative 55 Blood Loss Other: Voiding Method Indwelling Catheter # Voids 2 2 - Exam Extremities: Present: normal, edema Abdomen: Present: normal appearance Incision: Present: normal, dry, intact Uterus: Present: normal, firm - Labs Labs: Abnormal Lab Results - Last 24 Hours (Table) 03/02/23 03/03/23 Range/Units 10:25 07:14 WBC 11.6 H (3.8-10.6) k/uL Hgb 10.3 L (11.4-16.0) gm/dL Hct 31.8 L (34.0-46.0) % Neutrophils # 9.0 H (1.3-7.7) k/uL Assessment and Plan (1) 39 weeks gestation of Current Visit: Yes Status: Acute Code(s): Z3A.39 - 39 WEEKS GESTATION OF SNOMED Code(s): 29500859 (2) H/O section Current Visit: Yes Status: Acute Code(s): Z98.891 - HISTORY OF UTERINE SCAR FROM PREVIOUS SURGERY SNOMED Code(s): 870743673 (3) Family planning Current Visit: Yes Status: Acute Code(s): Z30.09 - ENCOUNTER FOR OTH GENERAL CNSL AND ADVICE ON CONTRACEPTION SNOMED Code(s): 540267822 Plan: doing well post operatively, continue routine post op care. anticipate discharge tomorrow.
[2023-03-04] MEDS: IBUPROFEN 600 MG TAB PO SCH ×2 (04:27→07:45)
--- NOTE | 2023-03-04 07:12 | P.DS ---
Providers Date of admission: 03/02/23 09:51 Expected date of discharge: 03/04/23 Attending physician: Anastasiia Villanueva Primary care physician: Stated None - Discharge Diagnosis(es) (1) 39 weeks gestation of Current Visit: Yes Status: Acute (2) H/O section Current Visit: Yes Status: Acute (3) Family planning Current Visit: Yes Status: Acute Hospital Course: this is a 27-year-old G3 now P 1112 that presented to labor and delivery at 39 weeks of for scheduled repeat section with tubal ligation. Patient has a prior history of preeclampsia and was delivered at an [facility] for sterility. Patient's blood pressures throughout this has been well controlled. Patient desires tubal ligation as she states she is done with childbearing. Patient was receiving routine care with myself, for full details on this patient please see the dictated history and physical. Patient was admitted and taken back for repeat section with tubal ligation. C- section was performed without difficulty. Patient delivered a viable female at 1227, weight of 6 lbs. 9 oz. Patient has done well postoperatively. On this postoperative day #2 she is ambulating and voiding without difficulty. She is tolerating a regular diet without nausea or vomiting. She states her pain is well-controlled. She denies concerns and would like discharge home. Patient Condition at Discharge: Good Plan - Discharge Summary Discharge Rx Participant: No New Discharge Prescriptions: No Action Vit No.179/Iron/Folic [ Tablet] 1 tab PO DAILY Discharge Medication List Vit No.179/Iron/Folic [ Tablet] 1 tab PO DAILY 11/22/22 [Histor y] Follow up Appointment(s)/Referral(s): nAastasiia Villanueva DO [Doctor of Osteopathic Medicine] - 2 Weeks Patient Instructions/Handouts: (DC), (GEN) Activity/Diet/Wound Care/Special Instructions: no tub baths or intercourse until 6 weeks . Bleeding precautions are reviewed. Patient is to call the office and make a routine 2 week postoperative check appointment. Patient is to call the office should she have any concerns prior to this appointment. Discharge Disposition: HOME SELF-CARE
[2023-03-04] MEDS: ACETAMINOPHEN TAB 500 MG TAB PO SCH (07:44)
[2023-03-04 08:11] VITALS: BP 109/69; PULSE 82; RESP 18; TEMP 98
== END 2023-03-04 10:51 | disposition home or self-care (01) | DRG 785 ==
LOC: 4FBP 09:51
PROVIDERS: ADMIT Obstetrics & Gynecology Obstetrics; ATTEND Obstetrics & Gynecology Obstetrics
PROC: 10D00Z1 Extraction of Products of Conception, Low, Open Approach (ICD-10-PCS; principal; 2023-03-02 12:20)
PROC: 0UL70CZ Occlusion of Bilateral Fallopian Tubes with Extraluminal Device, Open Approach (ICD-10-PCS; principal; 2023-03-02 12:20)
DX: O34.211 Maternal care for low transverse scar from previous cesarean delivery (principal); E28.2 Polycystic ovarian syndrome; O99.284 Endocrine, nutritional and metabolic diseases complicating childbirth; Z37.0 Single live birth; Z3A.39 39 weeks gestation of pregnancy; Z28.310 Unvaccinated for COVID-19; Z30.2 Encounter for sterilization; E66.9 Obesity, unspecified; O99.52 Diseases of the respiratory system complicating childbirth; J45.909 Unspecified asthma, uncomplicated; Q51.810 Arcuate uterus; Z79.899 Other long term (current) drug therapy; Z87.891 Personal history of nicotine dependence; Z88.6 Allergy status to analgesic agent; Z88.5 Allergy status to narcotic agent; Z88.8 Allergy status to other drugs, medicaments and biological substances; Z71.89 Other specified counseling
CPT/HCPCS: 85025; 86850; 86900; 86901

== ENCOUNTER 2023-09-08 18:18 | Emergency (ER) | payer BC ==
--- NOTE | 2023-09-08 18:22 | ED ---
General Adult HPI - General Stated complaint: Pain on right side Time Seen by Provider: 09/08/23 18:21 Source: RN notes reviewed - History of Present Illness Initial comments: 27 female with no significant past medical history presents to the emergency department with a chief complaint of right lower quadrant abdominal pain. Patient reports a burning. Reports accompanying nausea. Vital signs stable upon initial evaluation. Patient eloped prior to completion of care and room assignment AGAINST MEDICAL ADVICE. - Related Data Home Medications Medication Instructions Recorded Confirmed Vit No.179/Iron/Folic 1 tab PO DAILY 11/22/22 03/02/23 [ Tablet] Allergies Allergy/AdvReac Type Severity Reaction Status Date / Time acetaminophen [From Vicodin] AdvReac Nausea & Verified 02/22/23 10:59 Vomiting hydrocodone bitartrate AdvReac Nausea & Verified 02/22/23 10:59 [From Vicodin] Vomiting metformin AdvReac Swelling Verified 03/02/23 10:32 morphine AdvReac Nausea & Verified 02/22/23 10:59 Vomiting Review of Systems ROS Statement: Those systems with pertinent positive or pertinent negative responses have been documented in the HPI. ROS Other: All systems not noted in ROS Statement are negative. Past Medical History Past Medical History: Asthma Additional Past Medical History / Comment(s): Depression, obesity, PCO S History of Any Multi-Drug Resistant Organisms: None Reported Past Surgical History: Cholecystectomy Additional Past Surgical History / Comment(s): [place] teeth removal Past Anesthesia/Blood Transfusion Reactions: No Reported Reaction Smoking Status: Never smoker General Exam - General Exam Comments Initial Comments: Visual Physical Exam Vital signs reviewed General: Well-appearing, nontoxic, no acute distress. Head: Normocephalic, atraumatic Eyes: PERRLA, EOMI ENT: Airway patent Chest: Nonlabored breathing Skin: No visual rash, normal skin tone Neuro: Alert and oriented 3 Musculoskeletal: No gross abnormalities I performed the quick note portion of this exam, verbal signature Leidy Heart PA-C Course Vital Signs 09/08/23 18:27 Temperature 98.8 F Pulse Rate 90 Respiratory 16 Rate Blood Pressure 132/79 O2 Sat by Pulse 99 Oximetry Medical Decision Making - Lab Data Result diagrams: 09/08/23 18:30 09/08/23 18:30 Lab Results 09/08/23 09/08/23 09/08/23 Range/Units 18:30 18:30 18:30 WBC 6.9 (3.8-10.6) k/uL RBC 5.02 (3.80-5.40) m/uL Hgb 14.1 (11.4-16.0) gm/dL Hct 44.3 (34.0-46.0) % MCV 88.2 (80.0-100.0) fL MCH 28.0 (25.0-35.0) pg MCHC 31.8 (31.0-37.0) g/dL RDW 15.0 (11.5-15.5) % Plt Count 318 (150-450) k/uL MPV 7.0 Neutrophils % 60 % Lymphocytes % 32 % Monocytes % 5 % Eosinophils % 1 % Basophils % 0 % Neutrophils # 4.1 (1.3-7.7) k/uL Lymphocytes # 2.2 (1.0-4.8) k/uL Monocytes # 0.3 (0-1.0) k/uL Eosinophils # 0.1 (0-0.7) k/uL Basophils # 0.0 (0-0.2) k/uL Hypochromasia Slight Sodium (137-145) mmol/L Potassium (3.5-5.1) mmol/L Chloride (98-107) mmol/L Carbon Dioxide (22-30) mmol/L Anion Gap mmol/L BUN (7-17) mg/dL Creatinine (0.52-1.04) mg/dL Est GFR (CKD-EPI)AfAm (>60 ml/min/1.73 sqM) Est GFR (CKD-EPI)NonAf (>60 ml/min/1.73 sqM) Glucose (74-99) mg/dL Calcium (8.4-10.2) mg/dL Total Bilirubin (0.2-1.3) mg/dL AST (14-36) U/L ALT (4-34) U/L Alkaline Phosphatase (38-126) U/L Total Protein (6.3-8.2) g/dL Albumin (3.5-5.0) g/dL Urine Color Yellow Urine Appearance Clear (Clear) Urine pH 5.5 (5.0-8.0) Ur Specific [place] >1.030 (1.001-1.035) Urine Protein Negative (Negative) Urine Glucose (UA) Negative (Negative) Urine Ketones Negative (Negative) Urine Blood Moderate (Negative) Urine Nitrite Negative (Negative) Urine Bilirubin Negative (Negative) Urine Urobilinogen <2.0 (<2.0) mg/dL Ur Leukocyte Esterase Moderate (Negative) Urine RBC 119 H (0-5) /hpf Urine WBC 5 (0-5) /hpf Ur Squamous Epith Cells 15 H (0-4) /hpf Urine Bacteria Rare H (None) /hpf Hyaline Casts 1 (0-2) /lpf Urine Mucus Rare H (None) /hpf Urine HCG, Qual Not Detected (Not Detectd) 09/08/23 Range/Units 18:30 WBC (3.8-10.6) k/uL RBC (3.80-5.40) m/uL Hgb (11.4-16.0) gm/dL Hct (34.0-46.0) % MCV (80.0-100.0) fL MCH (25.0-35.0) pg MCHC (31.0-37.0) g/dL RDW (11.5-15.5) % Plt Count (150-450) k/uL MPV Neutrophils % % Lymphocytes % % Monocytes % % Eosinophils % % Basophils % % Neutrophils # (1.3-7.7) k/uL Lymphocytes # (1.0-4.8) k/uL Monocytes # (0-1.0) k/uL Eosinophils # (0-0.7) k/uL Basophils # (0-0.2) k/uL Hypochromasia Sodium 137 (137-145) mmol/L Potassium 4.5 (3.5-5.1) mmol/L Chloride 106 (98-107) mmol/L Carbon Dioxide 23 (22-30) mmol/L Anion Gap 8 mmol/L BUN 13 (7-17) mg/dL Creatinine 0.82 (0.52-1.04) mg/dL Est GFR (CKD-EPI)AfAm >90 (>60 ml/min/1.73 sqM) Est GFR (CKD-EPI)NonAf >90 (>60 ml/min/1.73 sqM) Glucose 99 (74-99) mg/dL Calcium 9.6 (8.4-10.2) mg/dL Total Bilirubin 0.3 (0.2-1.3) mg/dL AST 25 (14-36) U/L ALT 22 (4-34) U/L Alkaline Phosphatase 94 (38-126) U/L Total Protein 7.2 (6.3-8.2) g/dL Albumin 4.0 (3.5-5.0) g/dL Urine Color Urine Appearance (Clear) Urine pH (5.0-8.0) Ur Specific [place] (1.001-1.035) Urine Protein (Negative) Urine Glucose (UA) (Negative) Urine Ketones (Negative) Urine Blood (Negative) Urine Nitrite (Negative) Urine Bilirubin (Negative) Urine Urobilinogen (<2.0) mg/dL Ur Leukocyte Esterase (Negative) Urine RBC (0-5) /hpf Urine WBC (0-5) /hpf Ur Squamous Epith Cells (0-4) /hpf Urine Bacteria (None) /hpf Hyaline Casts (0-2) /lpf Urine Mucus (None) /hpf Urine HCG, Qual (Not Detectd) Disposition Clinical Impression: Abdominal pain Disposition: LEFT AGAINST MEDICAL ADVICE Condition: Undetermined Referrals: None,Stated [Primary Care Provider] - 1-2 days
[2023-09-08 18:35] VITALS: BP 132/79; PULSE 90; RESP 16; TEMP 98.8
[2023-09-08 19:12] LABS: Basophils % (A) 0 %; Eosinophils # (A) 0.1 k/uL (0-0.7); Eosinophils % (A) 1 %; HCT 44.3 % (34.0-46.0); HGB 14.1 gm/dL (11.4-16.0); Hypochromasia Slight; Lymphocytes # (A) 2.2 k/uL (1.0-4.8); Lymphocytes % (A) 32 %; MCHC 31.8 g/dL (31.0-37.0); MCV 88.2 fL (80.0-100.0); Monocytes # (A) 0.3 k/uL (0-1.0); Monocytes % (A) 5 %; Neutrophils # (A) 4.1 k/uL (1.3-7.7); Neutrophils % (A) 60 %; Platelet Count 318 k/uL (150-450); RBC 5.02 m/uL (3.80-5.40); WBC 6.9 k/uL (3.8-10.6)
[2023-09-08 19:20] LABS: ALT 22 U/L (4-34); AST 25 U/L (14-36); African American GFR (CKD) >90 (>60 ml/min/1.73 sqM); Alkaline Phosphatase 94 U/L (38-126); Anion Gap 8 mmol/L; Blood Urea Nitrogen 13 mg/dL (7-17); Calcium 9.6 mg/dL (8.4-10.2); Carbon Dioxide 23 mmol/L (22-30); Chloride 106 mmol/L (98-107); Glucose 99 mg/dL (74-99); Non-African American GFR(CKD) >90 (>60 ml/min/1.73 sqM); Potassium 4.5 mmol/L (3.5-5.1); Sodium 137 mmol/L (137-145); Total Bilirubin 0.3 mg/dL (0.2-1.3); Total Protein 7.2 g/dL (6.3-8.2)
[2023-09-08 19:23] LABS: Bacteria,Urine Rare /hpf; Hyaline Casts,Urine 1 /lpf (0-2); Mucus,Urine Rare /hpf; RBC,Urine 119 /hpf (0-5); Squamous Epithelial Cell,Urine 15 /hpf (0-4); WBC,Urine 5 /hpf (0-5)
[2023-09-08 19:31] LABS: Appearance,Urine Clear (Clear); Color,Urine Yellow
[2023-09-08 19:32] LABS: Bilirubin,Urine Negative (Negative); Blood,Urine Moderate (Negative); Glucose,Urine (UA) Negative (Negative); Ketones,Urine Negative (Negative); Leukocyte Esterase,Urine Moderate (Negative); Nitrite,Urine Negative (Negative); PH, Urine 5.5 (5.0-8.0); Protein,Urine Negative (Negative); Specific Gravity,Urine >1.030 (1.001-1.035); Urobilinogen,Urine <2.0 mg/dL (<2.0)
== END 2023-09-08 20:44 | disposition left against medical advice (07) ==
LOC: EC 18:18
DX: R10.31 Right lower quadrant pain (principal); J45.909 Unspecified asthma, uncomplicated; Z88.6 Allergy status to analgesic agent; Z88.8 Allergy status to other drugs, medicaments and biological substances; Z88.5 Allergy status to narcotic agent; Z53.29 Procedure and treatment not carried out because of patient's decision for other reasons; Z90.49 Acquired absence of other specified parts of digestive tract
CPT/HCPCS: 36415; 80053; 81001; 81025; 85025; 99283

== ENCOUNTER 2023-10-17 17:09 | Emergency (ER) | payer BC, OTHER ==
[2023-10-17 17:53] VITALS: RESP 16
[2023-10-17 18:20] LABS: Appearance,Urine Cloudy (Clear); Bilirubin,Urine Negative (Negative); Blood,Urine Moderate (Negative); Color,Urine Yellow; Glucose,Urine (UA) Negative (Negative); Ketones,Urine Negative (Negative); Leukocyte Esterase,Urine Moderate (Negative); Nitrite,Urine Negative (Negative); PH, Urine 6.5 (5.0-8.0); Protein,Urine Trace (Negative); Urobilinogen,Urine <2.0 mg/dL (<2.0)
[2023-10-17 18:25] LABS: Bacteria,Urine Occasional /hpf; Mucus,Urine Few /hpf; RBC,Urine 7 /hpf (0-5); Squamous Epithelial Cell,Urine 8 /hpf (0-4); WBC,Urine 18 /hpf (0-5)
--- NOTE | 2023-10-17 18:32 | ED ---
Abdominal Pain HPI - General Source: patient, RN notes reviewed Mode of arrival: ambulatory Limitations: no limitations <Casi Dias - Last Filed: 10/17/23 18:31> - General Source: patient, RN notes reviewed Mode of arrival: ambulatory Limitations: no limitations - History of Present Illness MD Complaint: flank pain <Olivia Patterson - Last Filed: 10/18/23 00:42> - General Chief Complaint: Abdominal Pain Stated Complaint: kidney stone Time Seen by Provider: 10/17/23 18:31 - History of Present Illness Initial Comments: Patient is a 28-year-old female presented ER with chief complaint of right flank pain. Patient states the pain started this morning. Patient does have a history of kidney stones. Patient endorses chills. (Casi Dias) This is a 28-year-old female who presents to the emergency department for right flank pain. States that this began this morning. She has associated nausea and vomiting. Reports a history of kidney stones, but states that the stones have never moved into the ureter and she has never passed any. Denies any urinary symptoms. She has chills but has not measured any fevers. (Oliiva Patterson) - Related Data Home Medications Medication Instructions Recorded Confirmed Vit No.179/Iron/Folic 1 tab PO DAILY 11/22/22 03/02/23 [ Tablet] Previous Rx's Medication Instructions Recorded Ketorolac [Toradol] 10 mg PO Q6HR PRN #15 tab 10/17/23 Ondansetron Odt [Zofran Odt] 4 mg PO Q8HR PRN #15 tab 10/17/23 Sulfamethox-Tmp 800-160Mg [Bactrim 1 tab PO Q12HR 7 Days #14 tab 10/17/23 DS 800-160 mg] Allergies Allergy/AdvReac Type Severity Reaction Status Date / Time acetaminophen [From Vicodin] AdvReac Nausea & Verified 10/17/23 17:52 Vomiting hydrocodone bitartrate AdvReac Nausea & Verified 10/17/23 17:52 [From Vicodin] Vomiting metformin AdvReac Swelling Verified 10/17/23 17:52 morphine AdvReac Nausea & Verified 10/17/23 17:52 Vomiting Review of Systems ROS Other: All systems not noted in ROS Statement are negative. <Casi Dias - Last Filed: 10/17/23 18:31> ROS Other: All systems not noted in ROS Statement are negative. <Olivia Patterson - Last Filed: 10/18/23 00:42> ROS Statement: Those systems with pertinent positive or pertinent negative responses have been documented in the HPI. Past Medical History Past Medical History: Asthma Additional Past Medical History / Comment(s): Depression, PCOS, kidney stones History of Any Multi-Drug Resistant Organisms: None Reported Past Surgical History: Cholecystectomy Additional Past Surgical History / Comment(s): [place] teeth removal Past Anesthesia/Blood Transfusion Reactions: No Reported Reaction Past Psychological History: Anxiety, Depression Smoking Status: Never smoker Past Alcohol Use History: None Reported Past Drug Use History: None Reported <Casi Dias - Last Filed: 10/17/23 18:31> General Exam Limitations: no limitations <Casi Dias - Last Filed: 10/17/23 18:31> Limitations: no limitations General appearance: alert, in no apparent distress Head exam: Present: atraumatic, normocephalic, normal inspection Respiratory exam: Present: normal lung sounds bilaterally. Absent: respiratory distress, wheezes, rales, rhonchi, stridor Cardiovascular Exam: Present: regular rate, normal rhythm, normal heart sounds. Absent: systolic murmur, diastolic murmur, rubs, gallop, clicks GI/Abdominal exam: Present: soft, normal bowel sounds. Absent: distended, tenderness, guarding, rebound, rigid Back exam: Present: CVA tenderness (R). Absent: CVA tenderness (L) Neurological exam: Present: alert, oriented X3, CN II-XII intact Psychiatric exam: Present: normal affect, normal mood Skin exam: Present: warm, dry, intact, normal color. Absent: rash <Olivia Patterson - Last Filed: 10/18/23 00:42> - General Exam Comments Initial Comments: Visual Physical Exam Vital signs reviewed General: Well-appearing, nontoxic, no acute distress. Head: Normocephalic, atraumatic Eyes: PERRLA, EOMI ENT: Airway patent Chest: Nonlabored breathing Skin: No visual rash, normal skin tone Neuro: Alert and oriented 3 Musculoskeletal: No gross abnormalities (Casi Dias) Course Vital Signs 10/17/23 10/17/23 17:49 21:27 Temperature 98.5 F 98.7 F Pulse Rate 91 74 Respiratory 16 16 Rate Blood Pressure 134/84 122/77 O2 Sat by Pulse 100 100 Oximetry Medical Decision Making <Casi Dias - Last Filed: 10/17/23 18:31> - Lab Data Result diagrams: 10/17/23 20:15 10/17/23 20:15 - Radiology Data Radiology results: report reviewed, image reviewed <Olivia Patterson - Last Filed: 10/18/23 00:42> - Medical Decision Making I performed the quick note portion of the exam. Electronically signed by Casi Dias PA-C (Casi Dias) This is a 28-year-old female who presents to the emergency department for right flank pain. Was pt. sent in by a medical professional or institution? @ -No Did you speak to anyone other than the patient for history? @ -No Did you review nursing and triage notes? @ -Yes, and I agree, it is accurate with regards to the patient's symptoms. Were old charts reviewed? @ -No Differential Diagnosis? @ -Differential Flank Pain: UTI, pyelonephritis, kidney stone, musculoskeletal, pancreatitis, cholecystitis, this is not meant to be an all-inclusive list. EKG interpreted by me (3pts min.)? @ -Not obtained X-rays interpreted by me (1pt min.)? @ -Not obtained CT interpreted by me (1pt min.)? @ -CT scan of the abdomen and pelvis obtained. My interpretation identifies no evidence of a ureteral calculus. U/S interpreted by me (1pt. min.)? @ -Not obtained What testing was considered but not performed? (CT, X-rays, U/S, labs)? Why? @ -None What meds were considered but not given? Why? @ -None Did you discuss the management of the patient with other professionals? @ -No Did you reconcile home meds? @ -No Was smoking cessation discussed for >3mins.? @ -No Was critical care preformed (if so, how long)? @ -No Were there social determinants of health that impacted care today? How? (Homelessness, low income, unemployed, alcoholism, drug addiction, transportation, low edu. Level, literacy, decrease access to med. care, care home, rehab)? @ -No Was there de-escalation of care discussed even if they declined? (Discuss DNR or withdrawal of care, Hospice)? @ -No What co-morbidities impacted this encounter? (DM, HTN, Smoking, COPD, CAD, Cancer, CVA, Hep., AIDS, mental health diagnosis, sleep apnea, morbid obesity)? @ -None Was patient admitted / discharged? @ -Discharged. Lab work obtained revealing mild leukocytosis and was otherwise unremarkable. Urinalysis is contaminated, but is suggestive of infection. Urine sent for culture. Computed tomography scan of the abdomen and pelvis obtained revealing no obvious obstructive calculus, however she does have bilateral renal calculi, and they advised correlation for a recently passed stone. Findings reviewed with the patient. Her symptoms were well controlled with IV fluids, Toradol, and Zofran. She was given a dose of ceftriaxone in the emergency department. Rx for Bactrim, Toradol, and Zofran provided with dosing instructions reviewed. Otherwise advised follow up with her primary care provider. Undiagnosed new problem with uncertain prognosis? @ -None Drug Therapy requiring intensive monitoring for toxicity (Heparin, Nitro, Insulin, Cardizem)? @ -None Were any procedures done? @ -None Diagnosis/symptom? @ -Right flank pain, UTI Acute, or Chronic, or Acute on Chronic? @ -Acute Uncomplicated (without systemic symptoms) or Complicated (systemic symptoms)? @ -Uncomplicated Side effects of treatment? @ -None Exacerbation, Progression, or Severe Exacerbation] @ -Not applicable Poses a threat to life or bodily function? @ -Unlikely Return precautions reviewed in depth, the patient is instructed to return to the emergency department with any new, worsening, or concerning symptoms. Patient verbalized understanding. This case was discussed in detail with the attending ED physician, Dr. Black. Presentation, findings, and treatment plan discussed in detail as well. (Olivia Patterson) - Lab Data Lab Results 10/17/23 10/17/23 10/17/23 Range/Units 18:06 19:47 20:15 WBC 12.1 H (3.8-10.6) k/uL RBC 5.24 (3.80-5.40) m/uL Hgb 14.9 (11.4-16.0) gm/dL Hct 46.4 H (34.0-46.0) % MCV 88.6 (80.0-100.0) fL MCH 28.4 (25.0-35.0) pg MCHC 32.1 (31.0-37.0) g/dL RDW 15.0 (11.5-15.5) % Plt Count 370 (150-450) k/uL MPV 7.0 Sodium (137-145) mmol/L Potassium (3.5-5.1) mmol/L Chloride (98-107) mmol/L Carbon Dioxide (22-30) mmol/L Anion Gap mmol/L BUN (7-17) mg/dL Creatinine (0.52-1.04) mg/dL Est GFR (CKD-EPI)AfAm (>60 ml/min/1.73 sqM) Est GFR (CKD-EPI)NonAf (>60 ml/min/1.73 sqM) Glucose (74-99) mg/dL Plasma Lactic Acid Danyel (0.7-2.0) mmol/L Calcium (8.4-10.2) mg/dL Total Bilirubin (0.2-1.3) mg/dL AST (14-36) U/L ALT (4-34) U/L Alkaline Phosphatase (38-126) U/L Total Protein (6.3-8.2) g/dL Albumin (3.5-5.0) g/dL Urine Color Yellow Urine Appearance Cloudy H (Clear) Urine pH 6.5 (5.0-8.0) Ur Specific [place] 1.020 (1.001-1.035) Urine Protein Trace H (Negative) Urine Glucose (UA) Negative (Negative) Urine Ketones Negative (Negative) Urine Blood Moderate (Negative) Urine Nitrite Negative (Negative) Urine Bilirubin Negative (Negative) Urine Urobilinogen <2.0 (<2.0) mg/dL Ur Leukocyte Esterase Moderate (Negative) Urine RBC 7 H (0-5) /hpf Urine WBC 18 H (0-5) /hpf Ur Squamous Epith Cells 8 H (0-4) /hpf Urine Bacteria Occasional H (None) /hpf Urine Mucus Few H (None) /hpf Urine HCG, Qual Not Detected (Not Detectd) 10/17/23 10/17/23 Range/Units 20:15 20:15 WBC (3.8-10.6) k/uL RBC (3.80-5.40) m/uL Hgb (11.4-16.0) gm/dL Hct (34.0-46.0) % MCV (80.0-100.0) fL MCH (25.0-35.0) pg MCHC (31.0-37.0) g/dL RDW (11.5-15.5) % Plt Count (150-450) k/uL MPV Sodium 140 (137-145) mmol/L Potassium 3.9 (3.5-5.1) mmol/L Chloride 105 (98-107) mmol/L Carbon Dioxide 24 (22-30) mmol/L Anion Gap 11 mmol/L BUN 8 (7-17) mg/dL Creatinine 0.87 (0.52-1.04) mg/dL Est GFR (CKD-EPI)AfAm >90 (>60 ml/min/1.73 sqM) Est GFR (CKD-EPI)NonAf >90 (>60 ml/min/1.73 sqM) Glucose 86 (74-99) mg/dL Plasma Lactic Acid [place] 1.1 (0.7-2.0) mmol/L Calcium 9.8 (8.4-10.2) mg/dL Total Bilirubin 0.5 (0.2-1.3) mg/dL AST 29 (14-36) U/L ALT 29 (4-34) U/L Alkaline Phosphatase 97 (38-126) U/L Total Protein 8.1 (6.3-8.2) g/dL Albumin 4.5 (3.5-5.0) g/dL Urine Color Urine Appearance (Clear) Urine pH (5.0-8.0) Ur Specific [place] (1.001-1.035) Urine Protein (Negative) Urine Glucose (UA) (Negative) Urine Ketones (Negative) Urine Blood (Negative) Urine Nitrite (Negative) Urine Bilirubin (Negative) Urine Urobilinogen (<2.0) mg/dL Ur Leukocyte Esterase (Negative) Urine RBC (0-5) /hpf Urine WBC (0-5) /hpf Ur Squamous Epith Cells (0-4) /hpf Urine Bacteria (None) /hpf Urine Mucus (None) /hpf Urine HCG, Qual (Not Detectd) Disposition <Casi Dias - Last Filed: 10/17/23 18:31> Is patient prescribed a controlled substance at d/c from ED?: No <Olivia Patterson - Last Filed: 10/18/23 00:42> Clinical Impression: UTI (urinary tract infection), Flank pain Disposition: HOME SELF-CARE Instructions (If sedation given, give patient instructions): Urinary Tract Infection in Women (ED) Additional Instructions: Return to the emergency department with any new, worsening, or concerning sym ptoms. Take the anitbiotic as prescribed for 7 days. Take the Toradol with Tylenol as needed for pain relief. If you choose to take the Toradol, do not take any other anti-inflammatories such as ibuprofen, take one or the other. You can take the Zofran up to every 8 hours as needed for nausea and vomiting. Slowly advance your diet as tolerated and remain well hydrated. Follow up with your primary care provider in 1-2 days. Prescriptions: Sulfamethox-Tmp 800-160Mg [Bactrim DS 800-160 mg] 1 tab PO Q12HR 7 Days #14 tab Ketorolac [Toradol] 10 mg PO Q6HR PRN #15 tab PRN Reason: Pain Ondansetron Odt [Zofran Odt] 4 mg PO Q8HR PRN #15 tab PRN Reason: Nausea And Vomiting Referrals: None,Stated [REFERRING] - 1-2 days
[2023-10-17] MEDS ORDERED: KETOROLAC 15 MG/ML 1 ML VIAL IVP STA (19:48)
[2023-10-17] MEDS ORDERED: SODIUM CHLORIDE 0.9% 1,000 ML IV STA (19:48)
[2023-10-17] MEDS ORDERED: ONDANSETRON 4 MG/2 ML VIAL IVP STA (19:48)
[2023-10-17 20:29] LABS: HCT 46.4 % (34.0-46.0); HGB 14.9 gm/dL (11.4-16.0); MCH 28.4 pg (25.0-35.0); MCHC 32.1 g/dL (31.0-37.0); MCV 88.6 fL (80.0-100.0); Platelet Count 370 k/uL (150-450); RBC 5.24 m/uL (3.80-5.40); WBC 12.1 k/uL (3.8-10.6)
[2023-10-17 20:38] LABS: ALT 29 U/L (4-34); AST 29 U/L (14-36); African American GFR (CKD) >90 (>60 ml/min/1.73 sqM); Albumin 4.5 g/dL (3.5-5.0); Alkaline Phosphatase 97 U/L (38-126); Anion Gap 11 mmol/L; Blood Urea Nitrogen 8 mg/dL (7-17); Calcium 9.8 mg/dL (8.4-10.2); Carbon Dioxide 24 mmol/L (22-30); Chloride 105 mmol/L (98-107); Glucose 86 mg/dL (74-99); Non-African American GFR(CKD) >90 (>60 ml/min/1.73 sqM); Potassium 3.9 mmol/L (3.5-5.1); Sodium 140 mmol/L (137-145); Total Bilirubin 0.5 mg/dL (0.2-1.3); Total Protein 8.1 g/dL (6.3-8.2)
--- NOTE | 2023-10-17 21:31 | CT ---
EXAMINATION TYPE: CT abdomen pelvis wo con CT DLP: 789.4 mGycm, Automated exposure control for dose reduction was used. DATE OF EXAM: 10/17/2023 8:59 PM COMPARISON: CT abdomen pelvis most recent from 09/28/2017 CLINICAL INDICATION:Female, 28 years old with history of flank pain; Right flank pain x few day- unbe arable today. TECHNIQUE: Axial CT of the ;CT abdomen pelvis wo con;Sagittal and coronal reformats were created on a separate workstation. Contrast used: (none if empty) Oral contrast used: without Oral Contrast (none if empty) FINDINGS: LOWER CHEST: Unremarkable ABDOMEN LIVER: Unremarkable GALLBLADDER AND BILE DUCTS: The gallbladder surgically absent. PANCREAS: Unremarkable. SPLEEN: Unremarkable. ADRENAL GLANDS: Unremarkable. KIDNEYS AND URETERS: Bilateral renal calculi the right measuring up to 9 mm and on the left measuring up to 4 mm. PELVIS BLADDER: Unremarkable REPRODUCTIVE: Bilateral tubal ligation clips. ABDOMEN & PELVIS STOMACH AND BOWEL: No evidence of bowel obstruction. PERITONEUM/RETROPERITONEUM: No evidence of pneumoperitoneum or free fluid. VASCULATURE: No evidence of aortic aneurysm. MUSCULOSKELETAL: No acute osseous abnormalities LYMPH NODES: No gross evidence for lymphadenopathy. SOFT TISSUE/ABDOMINAL WALL: Fat-containing inguinal hernia. IMPRESSION: 1. No evidence for obstructing calculus. There are nonobstructing bilateral renal calculi. Correlate for recently passed stone. No additional evidence for acute process. 2. Appendix is normal.
[2023-10-17 21:38] VITALS: BP 122/77; PULSE 74; TEMP 98.7
[2023-10-17] MEDS ORDERED: cefTRIAXone IN SWFI 1,000 MG/10 ML SYRINGE IVP STA (21:38)
[2023-10-17] MEDS ORDERED: IBUPROFEN 600 MG STARTER PACK 4 TAB BTL PO STA (21:50)
[2023-10-17] MEDS ORDERED: ONDANSETRON 4 MG ODT STARTER PACK 2 TAB BTL PO STA (21:50)
== END 2023-10-17 22:10 | disposition home or self-care (01) ==
LOC: EC 17:09
DX: N39.0 Urinary tract infection, site not specified (principal); N20.0 Calculus of kidney; J45.909 Unspecified asthma, uncomplicated; Z88.5 Allergy status to narcotic agent; Z86.59 Personal history of other mental and behavioral disorders; Z88.6 Allergy status to analgesic agent; Z88.8 Allergy status to other drugs, medicaments and biological substances
CPT/HCPCS: 99284; 96374; 96375 ×2; 96361; 36415; 80053; 83605; 85027; 81001; 81025; 87086; 74176; J2405; J0696; J1885; S0119

== ENCOUNTER 2023-10-28 12:52 | Emergency (ER) | payer BC, OTHER ==
--- NOTE | 2023-10-28 13:29 | ED ---
Dizziness HPI - General Chief Complaint: Dizziness Stated Complaint: Dizziness Time Seen by Provider: 10/28/23 13:23 Source: patient, RN notes reviewed, old records reviewed Mode of arrival: ambulatory Limitations: no limitations - History of Present Illness Initial Comments: This is a 28-year-old female to the emergency department today. Patient is to day for evaluation of lightheadedness and dizziness at times off-balance. Patient states symptoms are worse with activity but she is able to ambulate, she has no nausea vomiting diarrhea. No recent fevers headache, no other complaints. Patient denies any recent change in medications MD Complaint: dizziness, lightheadedness -: hour(s) Timing: gradual onset, intermittent Description: sense of movement, lightheadedness History of Same: No History of Trauma: No Severity: mild Improves With: remaining still Worsens With: movement Associated Symptoms: denies other symptoms - Related Data Home Medications Medication Instructions Recorded Confirmed Vit No.179/Iron/Folic 1 tab PO DAILY 11/22/22 03/02/23 [ Tablet] Previous Rx's Medication Instructions Recorded Ketorolac [Toradol] 10 mg PO Q6HR PRN #15 tab 10/17/23 Ondansetron Odt [Zofran Odt] 4 mg PO Q8HR PRN #15 tab 10/17/23 Sulfamethox-Tmp 800-160Mg [Bactrim 1 tab PO Q12HR 7 Days #14 tab 10/17/23 DS 800-160 mg] Allergies Allergy/AdvReac Type Severity Reaction Status Date / Time acetaminophen [From Vicodin] AdvReac Nausea & Verified 10/28/23 13:14 Vomiting hydrocodone bitartrate AdvReac Nausea & Verified 10/28/23 13:14 [From Vicodin] Vomiting metformin AdvReac Swelling Verified 10/28/23 13:14 morphine AdvReac Nausea & Verified 10/28/23 13:14 Vomiting Review of Systems ROS Statement: Those systems with pertinent positive or pertinent negative responses have been documented in the HPI. ROS Other: All systems not noted in ROS Statement are negative. Past Medical History Past Medical History: Asthma Additional Past Medical History / Comment(s): Depression, PCOS, kidney stones History of Any Multi-Drug Resistant Organisms: None Reported Past Surgical History: Cholecystectomy Additional Past Surgical History / Comment(s): [place] teeth removal Past Anesthesia/Blood Transfusion Reactions: No Reported Reaction Past Psychological History: Anxiety, Depression Smoking Status: Never smoker Past Alcohol Use History: None Reported Past Drug Use History: None Reported, Marijuana General Exam Limitations: no limitations General appearance: alert, in no apparent distress Head exam: Present: atraumatic, normocephalic, normal inspection Eye exam: Present: normal appearance, PERRL, EOMI. Absent: scleral icterus, conjunctival injection, periorbital swelling ENT exam: Present: normal exam, mucous membranes moist Neck exam: Present: normal inspection. Absent: tenderness, meningismus, lymphadenopathy Respiratory exam: Present: normal lung sounds bilaterally. Absent: respiratory distress, wheezes, rales, rhonchi, stridor Cardiovascular Exam: Present: regular rate, normal rhythm, normal heart sounds. Absent: systolic murmur, diastolic murmur, rubs, gallop, clicks GI/Abdominal exam: Present: soft, normal bowel sounds. Absent: distended, tende rness, guarding, rebound, rigid Extremities exam: Present: normal inspection, full ROM, normal capillary refill. Absent: tenderness, pedal edema, joint swelling, calf tenderness Back exam: Present: normal inspection Neurological exam: Present: alert, oriented X3, CN II-XII intact Psychiatric exam: Present: normal affect, normal mood Skin exam: Present: warm, dry, intact, normal color. Absent: rash Course Vital Signs 10/28/23 10/28/23 10/28/23 13:10 13:43 14:56 Temperature 98.5 F Pulse Rate 62 59 L 58 L Respiratory 17 18 18 Rate Blood Pressure 125/88 115/68 125/80 O2 Sat by Pulse 98 99 100 Oximetry 10/28/23 15:55 Temperature Pulse Rate 80 Respiratory 18 Rate Blood Pressure 132/78 O2 Sat by Pulse 98 Oximetry - Reevaluation(s) Reevaluation #1: Medical records reviewed Reevaluation #2: Patient is able ambulate with no focal neurological deficits here in the ER Reevaluation #3: Patiently results and questions answered Reevaluation #4: Was pt. sent in by a medical professional or institution (, PA, CAR RENTAL SALES ASSISTANT, urgent care, hospital, or jail...) When possible be specific @ -no Did you speak to anyone other than the patient for history (EMS, parent, family, police, friend...)? What history was obtained from this source @ -no Did you review nursing and triage notes (agree or disagree)? Why? @ -agree Are old charts reviewed (outside hosp., previous admission, EMS record, old EKG, old radiological studies, urgent care reports/EKG's, jail records)? Report findings @ -yes Differential Diagnosis (chest pain, altered mental status, abdominal pain women, abdominal pain men, vaginal bleeding, weakness, fever, dyspnea, syncope, headache, dizziness, GI bleed, back pain, seizure, CVA, palpatations, mental health, musculoskeletal)? @ -prior EKG interpreted by me (3pts min.). @ -yes X-rays interpreted by me (1pt min.). @ -no CT interpreted by me (1pt min.). @ -no U/S interpreted by me (1pt. min.). @ -no What testing was considered but not performed or refused? (CT, X-rays, U/S, labs)? Why? @ -none What meds were considered but not given or refused? Why? @ -none Did you discuss the management of the patient with other professionals (professionals i.e. , PA, CAR RENTAL SALES ASSISTANT, lab, RT, psych nurse, social work administrator, fruit i farmworker, te acher, protective officer, case advocate)? Give summary @ -no Was smoking cessation discussed for >3mins.? @ -no Was critical care preformed (if so, how long)? @ -no Were there social determinants of health that impacted care today? How? (Homelessness, low income, unemployed, alcoholism, drug addiction, transportation, low edu. Level, literacy, decrease access to med. care, senior living, rehab)? @ -none Was there de-escalation of care discussed even if they declined (Discuss DNR or withdrawal of care, Hospice)? DNR status @ -no What co-morbidities impacted this encounter? (DM, HTN, Smoking, COPD, CAD, Cancer, CVA, ARF, Chemo, Hep., AIDS, mental health diagnosis, sleep apnea, morbid obesity)? @ -none Was patient admitted / discharged? Hospital course, mention meds given and route, prescriptions, significant lab abnormalities, going to OR and other pertinent info. @ - 28 female to the emergency room with his heart racing. Patient has normal findings here in the ER with no acute distress patient can be discharged home, dizziness improved patient is ataxic no neurological findings and headache Discharge Undiagnosed new problem with uncertain prognosis? @ -no Drug Therapy requiring intensive monitoring for toxicity (Heparin, Nitro, Insulin, Cardizem)? @ -no Were any procedures done? @ -no Diagnosis/symptom? @ -Dizziness, vertigo Acute, or Chronic, or Acute on Chronic? @ -Acute Uncomplicated (without systemic symptoms) or Complicated (systemic symptoms)? @ -Complicated Side effects of treatment? @ -no Exacerbation, Progression, or Severe Exacerbation? @ -exacerbation Poses a threat to life or bodily function? How? (Chest pain, USA, MA, pneumonia, PE, COPD, DKA, ARF, appy, cholecystitis, CVA, Diverticulitis, Homicidal, Suicidal, threat to staff... and all critical care pts) @ -no Reevaluation #5: Differential Dizziness: Benign paroxysmal positional Vertigo, Menieres disease, otitis media, acoustic neuroma, vertebrobasilar insufficiency, cerebellar stroke, encephalitis, hypovolemic, arrhythmia, coronary artery syndrome, anemia, this is not meant to be an all-inclusive list EKG Findings - EKG Comments: EKG Findings:: EKG is sinus 64 MA 176 QRS 81 QTc 387 - EKG Results: EKG: interpreted by PAYAM Medical Decision Making - Medical Decision Making 28 female to the emergency room with his heart racing. Patient has normal findings here in the ER with no acute distress patient can be discharged home, dizziness improved patient is ataxic no neurological findings and headache - Lab Data Result diagrams: 10/28/23 14:32 10/28/23 14:32 Lab Results 10/28/23 10/28/23 10/28/23 Range/Units 14:32 14:32 14:32 WBC 8.6 (3.8-10.6) k/uL RBC 4.96 (3.80-5.40) m/uL Hgb 14.1 (11.4-16.0) gm/dL Hct 44.1 (34.0-46.0) % MCV 89.0 (80.0-100.0) fL MCH 28.4 (25.0-35.0) pg MCHC 31.9 (31.0-37.0) g/dL RDW 14.6 (11.5-15.5) % Plt Count 359 (150-450) k/uL MPV 7.2 Neutrophils % 78 % Lymphocytes % 16 % Monocytes % 4 % Eosinophils % 1 % Basophils % 0 % Neutrophils # 6.7 (1.3-7.7) k/uL Lymphocytes # 1.4 (1.0-4.8) k/uL Monocytes # 0.3 (0-1.0) k/uL Eosinophils # 0.1 (0-0.7) k/uL Basophils # 0.0 (0-0.2) k/uL PT 9.9 L (10.0-12.5) sec INR 0.9 (<1.2) APTT 26.0 (22.0-30.0) sec D-Dimer 0.37 (<0.60) mg/L FEU Sodium 136 L (137-145) mmol/L Potassium 5.1 (3.5-5.1) mmol/L Chloride 103 (98-107) mmol/L Carbon Dioxide 24 (22-30) mmol/L Anion Gap 9 mmol/L BUN 19 H (7-17) mg/dL Creatinine 1.57 H (0.52-1.04) mg/dL Est GFR (CKD-EPI)AfAm 52 (>60 ml/min/1.73 sqM) Est GFR (CKD-EPI)NonAf 45 (>60 ml/min/1.73 sqM) Glucose 81 (74-99) mg/dL Plasma Lactic Acid Danyel (0.7-2.0) mmol/L Calcium 9.4 (8.4-10.2) mg/dL Phosphorus 3.5 (2.5-4.5) mg/dL Magnesium 2.0 (1.6-2.3) mg/dL Total Bilirubin 0.4 (0.2-1.3) mg/dL AST 24 (14-36) U/L ALT 17 (4-34) U/L Alkaline Phosphatase 91 (38-126) U/L Troponin I (0.000-0.034) ng/mL Total Protein 7.4 (6.3-8.2) g/dL Albumin 4.1 (3.5-5.0) g/dL TSH 0.539 (0.465-4.680) mIU/L Urine Color Urine Appearance (Clear) Urine pH (5.0-8.0) Ur Specific Winston (1.001-1.035) Urine Protein (Negative) Urine Glucose (UA) (Negative) Urine Ketones (Negative) Urine Blood (Negative) Urine Nitrite (Negative) Urine Bilirubin (Negative) Urine Urobilinogen (<2.0) mg/dL Ur Leukocyte Esterase (Negative) Urine RBC (0-5) /hpf Urine WBC (0-5) /hpf Ur Squamous Epith Cells (0-4) /hpf Urine Bacteria (None) /hpf Urine Mucus (None) /hpf 10/28/23 10/28/23 10/28/23 Range/Units 14:32 14:32 14:32 WBC (3.8-10.6) k/uL RBC (3.80-5.40) m/uL Hgb (11.4-16.0) gm/dL Hct (34.0-46.0) % MCV (80.0-100.0) fL MCH (25.0-35.0) pg MCHC (31.0-37.0) g/dL RDW (11.5-15.5) % Plt Count (150-450) k/uL MPV Neutrophils % % Lymphocytes % % Monocytes % % Eosinophils % % Basophils % % Neutrophils # (1.3-7.7) k/uL Lymphocytes # (1.0-4.8) k/uL Monocytes # (0-1.0) k/uL Eosinophils # (0-0.7) k/uL Basophils # (0-0.2) k/uL PT (10.0-12.5) sec INR (<1.2) APTT (22.0-30.0) sec D-Dimer (<0.60) mg/L FEU Sodium (137-145) mmol/L Potassium (3.5-5.1) mmol/L Chloride (98-107) mmol/L Carbon Dioxide (22-30) mmol/L Anion Gap mmol/L BUN (7-17) mg/dL Creatinine (0.52-1.04) mg/dL Est GFR (CKD-EPI)AfAm (>60 ml/min/1.73 sqM) Est GFR (CKD-EPI)NonAf (>60 ml/min/1.73 sqM) Glucose (74-99) mg/dL Plasma Lactic Acid Dnayel 0.7 (0.7-2.0) mmol/L Calcium (8.4-10.2) mg/dL Phosphorus (2.5-4.5) mg/dL Magnesium (1.6-2.3) mg/dL Total Bilirubin (0.2-1.3) mg/dL AST (14-36) U/L ALT (4-34) U/L Alkaline Phosphatase (38-126) U/L Troponin I <0.012 (0.000-0.034) ng/mL Total Protein (6.3-8.2) g/dL Albumin (3.5-5.0) g/dL TSH (0.465-4.680) mIU/L Urine Color Colorless Urine Appearance Cloudy H (Clear) Urine pH 5.5 (5.0-8.0) Ur Specific Winston 1.019 (1.001-1.035) Urine Protein Negative (Negative) Urine Glucose (UA) Negative (Negative) Urine Ketones Negative (Negative) Urine Blood Negative (Negative) Urine Nitrite Negative (Negative) Urine Bilirubin Negative (Negative) Urine Urobilinogen <2.0 (<2.0) mg/dL Ur Leukocyte Esterase Moderate H (Negative) Urine RBC 4 (0-5) /hpf Urine WBC 15 H (0-5) /hpf Ur Squamous Epith Cells 22 H (0-4) /hpf Urine Bacteria Rare H (None) /hpf Urine Mucus Rare H (None) /hpf - EKG Data -: EKG Interpreted by Me Disposition Clinical Impression: Dizziness, Flank pain Disposition: HOME SELF-CARE Condition: Good Instructions (If sedation given, give patient instructions): Dizziness (ED) Is patient prescribed a controlled substance at d/c from ED?: No Referrals: Timothy Gonzalez MD [Primary Care Provider] - 1-2 days Time of Disposition: 15:00
[2023-10-28 13:33] VITALS: TEMP 98.5
[2023-10-28 13:58] VITALS: RESP 18
[2023-10-28] MEDS ORDERED: SODIUM CHLORIDE 0.9% 1,000 ML IV STA (14:10)
[2023-10-28] MEDS ORDERED: MECLIZINE 12.5 MG TAB PO STA (14:11)
[2023-10-28] MEDS ORDERED: ONDANSETRON 4 MG/2 ML VIAL IVP STA (14:11)
[2023-10-28 15:09] LABS: Appearance,Urine Cloudy (Clear); Bacteria,Urine Rare /hpf; Basophils % (A) 0 %; Bilirubin,Urine Negative (Negative); Blood,Urine Negative (Negative); Color,Urine Colorless; Eosinophils # (A) 0.1 k/uL (0-0.7); Eosinophils % (A) 1 %; Glucose,Urine (UA) Negative (Negative); HCT 44.1 % (34.0-46.0); HGB 14.1 gm/dL (11.4-16.0); Ketones,Urine Negative (Negative); Leukocyte Esterase,Urine Moderate (Negative); Lymphocytes # (A) 1.4 k/uL (1.0-4.8); Lymphocytes % (A) 16 %; MCH 28.4 pg (25.0-35.0); MCHC 31.9 g/dL (31.0-37.0); Mean Platelet Volume 7.2; Monocytes # (A) 0.3 k/uL (0-1.0); Monocytes % (A) 4 %; Mucus,Urine Rare /hpf; Neutrophils # (A) 6.7 k/uL (1.3-7.7); Neutrophils % (A) 78 %; Nitrite,Urine Negative (Negative); PH, Urine 5.5 (5.0-8.0); Platelet Count 359 k/uL (150-450); Protein,Urine Negative (Negative); RBC 4.96 m/uL (3.80-5.40); RBC,Urine 4 /hpf (0-5); RDW 14.6 % (11.5-15.5); Specific Gravity,Urine 1.019 (1.001-1.035); Squamous Epithelial Cell,Urine 22 /hpf (0-4); Urobilinogen,Urine <2.0 mg/dL (<2.0); WBC 8.6 k/uL (3.8-10.6); WBC,Urine 15 /hpf (0-5)
[2023-10-28] MEDS ORDERED: SODIUM CHLORIDE 0.9% 500 ML 500 ML IV STA (15:14)
[2023-10-28] MEDS ORDERED: KETOROLAC 15 MG/ML 1 ML VIAL IVP STA (15:14)
[2023-10-28 15:21] LABS: ALT 17 U/L (4-34); AST 24 U/L (14-36); African American GFR (CKD) 52 (>60 ml/min/1.73 sqM); Albumin 4.1 g/dL (3.5-5.0); Alkaline Phosphatase 91 U/L (38-126); Anion Gap 9 mmol/L; Blood Urea Nitrogen 19 mg/dL (7-17); Calcium 9.4 mg/dL (8.4-10.2); Carbon Dioxide 24 mmol/L (22-30); Chloride 103 mmol/L (98-107); Glucose 81 mg/dL (74-99); Non-African American GFR(CKD) 45 (>60 ml/min/1.73 sqM); Phosphorus 3.5 mg/dL (2.5-4.5); Potassium 5.1 mmol/L (3.5-5.1); Sodium 136 mmol/L (137-145); Total Bilirubin 0.4 mg/dL (0.2-1.3); Total Protein 7.4 g/dL (6.3-8.2)
[2023-10-28 15:26] LABS: INR 0.9 (<1.2); Prothrombin Time 9.9 sec (10.0-12.5)
[2023-10-28 16:02] VITALS: BP 132/78; PULSE 80
== END 2023-10-28 15:58 | disposition home or self-care (01) ==
LOC: EC 12:52
DX: R42 Dizziness and giddiness (principal); R10.9 Unspecified abdominal pain; I25.2 Old myocardial infarction; J45.909 Unspecified asthma, uncomplicated; F12.90 Cannabis use, unspecified, uncomplicated; Z86.59 Personal history of other mental and behavioral disorders; Z88.5 Allergy status to narcotic agent; Z88.8 Allergy status to other drugs, medicaments and biological substances
CPT/HCPCS: 36415; 93005; 85379; 80053; 83605; 83735; 84100; 84443; 84484; 85025; 85610; 85730; 81001; 99284; 96374; 96361; J2405

== ENCOUNTER → 2024-02-03 | Outpatient (CLI) | payer BC, OTHER ==
[2024-02-03 18:42] LABS: Appearance,Urine Clear (Clear); Bilirubin,Urine Negative (Negative); Blood,Urine Negative (Negative); Color,Urine Yellow (Yellow); Ketones,Urine Negative (Negative); Nitrite,Urine Negative (Negative); Specific Gravity,Urine 1.024 (1.001-1.030)
[2024-02-03 18:48] LABS: Basophils # (A) 0.06 X 10*3/uL (0.00-0.10); Basophils % (A) 0.7 %; Eosinophils # (A) 0.04 X 10*3/uL (0.04-0.35); Eosinophils % (A) 0.4 %; HGB 13.6 g/dL (12.0-15.0); Lymphocytes # (A) 2.44 X 10*3/uL (0.90-5.00); Lymphocytes % (A) 26.6 %; MCH 27.4 pg (27.0-32.0); MCHC 31.6 g/dL (32.0-37.0); MCV 86.7 FL (80.0-97.0); Mean Platelet Volume 9.5 FL (9.5-12.2); Monocytes # (A) 0.64 X 10*3/uL (0.20-1.00); NRBC Per 100 WBC 0 X 10*3/uL (0.00-0.01); Neutrophils # (A) 5.96 X 10*3/uL (1.80-7.70); Platelet Count 420 X 10*3/uL (140-440); RBC 4.96 X 10*6/uL (4.10-5.20); RDW 14.9 % (11.5-14.5); WBC 9.17 X 10*3/uL (4.50-10.00)
[2024-02-03 18:59] LABS: ALT 23 U/L (8-44); AST 25 U/L (13-35); Albumin 4.4 g/dL (3.8-4.9); Albumin/Globulin Ratio 1.52 Ratio (1.60-3.17); Alkaline Phosphatase 105 U/L (41-126); BUN/Creat Ratio 11.22 Ratio (12.00-20.00); Blood Urea Nitrogen 10.1 mg/dL (9.0-27.0); Calcium 9.6 mg/dL (8.7-10.3); Carbon Dioxide 24.9 mmol/L (21.6-31.8); Chloride 104 mmol/L (96-109); Globulin 2.9 g/dL (1.6-3.3); Glucose 89 mg/dL (70-110); Potassium 4.1 mmol/L (3.5-5.5); Sodium 138 mmol/L (135-145); Total Bilirubin 0.3 mg/dL (0.3-1.2); Total Protein 7.3 g/dL (6.2-8.2)
[2024-02-03 19:39] LABS: Bacteria,Urine 2+ (None Seen)
== END | disposition home or self-care (01) ==
LOC: LABPAT 14:34
PROVIDERS: ATTEND Urology
DX: Z01.812 Encounter for preprocedural laboratory examination (principal); N20.0 Calculus of kidney; R79.89 Other specified abnormal findings of blood chemistry
CPT/HCPCS: 80053; 81001; 85025; 87086

== ENCOUNTER 2024-02-07 11:07 | Day surgery (SDC) | payer BC, OTHER ==
[2024-02-02 12:07] VITALS: BMI 36.2
--- NOTE | 2024-02-07 09:11 | P.HPIHPCON ---
History of Present Illness H&P Date: 02/07/24 Chief Complaint: right renal stone This is a 28-year-old female with history of 9 mm right-sided renal stone, she is symptomatic from her stone. Option of ureteroscopy, with holmium laser, versus observation versus ESWL was discussed with her in detail. Risk and benefit and rationale of each approach was discussed. She agreed to proceed with right-sided ureteroscopy with holmium laser. Aware of the risk which includes but not limited to bleeding, infection, injury to the ureter. Risk of anesthesia was also discussed. She understood all the risk and agreed to proceed with Consent for Procedure: I have explained the operation/procedure to the patient, including the risks, benefits, side effects, alternative therapies (including not receiving the proposed treatment or service), the likelihood of the patient achieving his/her goals, and potential recuperation problems for the procedure/sedation/analgesia, as well as any blood products, if indicated. I also explained to the patient the risks, benefits and side effects of the alternatives, as well as the risks related to not receiving the proposed procedure, care, treatment, or services. Past Medical History Past Medical History: Asthma Additional Past Medical History / Comment(s): PCOS, kidney stones History of Any Multi-Drug Resistant Organisms: None Reported Past Surgical History: Section, Cholecystectomy Additional Past Surgical History / Comment(s): [place] teeth removal, C-SEC X 2 Past Anesthesia/Blood Transfusion Reactions: No Reported Reaction Smoking Status: Former smoker - Past Family History Mother History Unknown: Yes Family Medical History: No Reported History Additional Family Medical History / Comment(s): HHX UNKNOWN-PT ADOPTED Medications and Allergies Allergies Allergy/AdvReac Type Severity Reaction Status Date / Time acetaminophen [From Vicodin] AdvReac Nausea & Verified 02/02/24 11:24 Vomiting hydrocodone bitartrate AdvReac Nausea & Verified 02/02/24 11:24 [From Vicodin] Vomiting metformin AdvReac Swelling Verified 02/02/24 11:24 morphine AdvReac Nausea & Verified 02/02/24 11:24 Vomiting Surgical - Exam - General no distress, no pain - Eyes normal ocular movement, no pale - ENT normal nares, normal mucosa - Respiratory normal expansion, normal respiratory effort - Abdomen Abdomen: soft, non tender Assessment and Plan Assessment: OR for right-sided ureteroscopy, holmium laser lithotripsy, stone basketing and stent insertion
[~2024-02-07 11:07] MED LIST: HYDROmorphone 0.5 MG/0.5 ML SYRINGE IVP PRN; LACTATED RINGERS 1,000 ML IV SCH; LIDOCAINE 1% (10MG/ML) FOR IV START INTRADERMA PRN
--- NOTE | 2024-02-07 11:34 | XR ---
EXAMINATION TYPE: XR KUB DATE OF EXAM: 02/07/2024 COMPARISON: CT 10/17/2023 INDICATION: Right renal stone TECHNIQUE: Single view abdomen supine view FINDINGS: There is a nonspecific bowel gas pattern with air and fecal debris within the colon. Some nonspecific small bowel gas is in the left upper quadrant and within the stomach. Psoas margins are normal. No organomegaly is present. The patient's previous right renal stone is not identified at this time. There is a 0.6 cm calcification overlying the right sacrum at the pelvic inlet could be a distal uret eral stone. Correlate with patient history. IMPRESSION: 1. There may be a distal right ureteral stone measuring 0.6 cm in the upper right hemipelvis.
[2024-02-07] MEDS: LACTATED RINGERS 1,000 ML IV SCH (11:41)
[2024-02-07] MEDS: DEXAMETHASONE SOD PHOSPHATE 4 MG/ML 1 ML VIAL IV ONE (11:42)
[2024-02-07] MEDS: ONDANSETRON 4 MG/2 ML VIAL IVP ONE (11:42)
[2024-02-07] MEDS ORDERED: MIDAZOLAM 2 MG/2 ML VIAL ONE (11:45)
[2024-02-07] MEDS ORDERED: LIDOCAINE 1% INJ 10MG/ML (20 ML MDV) ONE (11:45)
[2024-02-07] MEDS ORDERED: fentaNYL (PF) 50 MCG/ML 2 ML AMP ONE (11:45)
[2024-02-07] MEDS ORDERED: SUCCINYLCHOLINE CHLORIDE 200 MG/10 ML VIAL IV ONE (11:45)
[2024-02-07] MEDS ORDERED: PHENYLEPHRINE-0.9% NACL SYG 1,000 MCG/10 ML SYRINGE ONE (11:45)
[2024-02-07] MEDS ORDERED: PROPOFOL 10 MG/ML 20 ML VIAL IV ONE (11:45)
[2024-02-07] MEDS ORDERED: ePHEDrine 50 MG/ML 1 ML VIAL ONE (11:45)
[2024-02-07] MEDS: IOPAMIDOL-370 100ML BTL MISCELLANE ONE (12:16)
--- NOTE | 2024-02-07 12:58 | P.OP ---
Date of Procedure: 02/07/24 Preoperative Diagnosis: Right renal stone Postoperative Diagnosis: Right ureteral stone Procedure(s) Performed: Cystoscopy, right ureteroscopy, holmium laser lithotripsy, stone basketing and stent insertion Implants: 6 Fr X 24 cm stent left on string Anesthesia: LIZETHA Surgeon: Jaime Lopez Estimated Blood Loss (ml): 5 Pathology: other (right ureteral stone) Condition: stable Disposition: PACU Indications for Procedure: This is a 28-year-old female with history of 9 mm right-sided renal stone, she is symptomatic from her stone. Option of ureteroscopy, with holmium laser, versus observation versus ESWL was discussed with her in detail. Risk and benefit and rationale of each approach was discussed. She agreed to proceed with right-sided ureteroscopy with holmium laser. Aware of the risk which includes but not limited to bleeding, infection, injury to the ureter. Risk of anesthesia was also discussed. She understood all the risk and agreed to proceed with right-sided ureteroscopy, lithotripsy, stone basketing and stent insertion Operative Findings: Right renal stone has migrated into the distal ureter Description of Procedure: Patient brought to the operating room, general anesthesia was induced. She was prepped and draped in sterile fashion and placed in dorsolithotomy position. Cystoscopy through the 21 [place]oan sheath was inserted per urethra, cystoscopy was performed which showed no abnormality within the bladder. Attention was then carried to the right ureteral orifice, as a sensor wire was advanced through the scope and up into the kidney. Next 1113 Samoan access sheath was passed over the wire, resistance was met at the distal ureter, at this point the access sheath was removed and an open-ended catheter was passed over the wire and the wire was removed with a catheter in place. Next retrograde pyelogram was performed showing filling defect at the distal ureter with mild hydroureteronephrosis. At this time a semirigid ureteroscope was inserted per urethra advanced up the right ureteral orifice, a distal ureteral stone was encountered at the area of the filling defect. Using the holmium laser the stone was fragmented, sizable stone fragments were removed using stone basket. At this time the ureteroscope was advanced past the area of the stone and into the proximal ureter which showed no additional stones, pullback ureteroscopy was performed showed no injury to the ureter or any ureteral stones, as ureteroscope was withdrawn and a sensor wire was advanced through. Next an 1113 Samoan access sheath was passed over the wire into the proximal ureter. The flexible ureteroscope was inserted through the access sheath, renoscopy was performed which showed no stones within the kidney, retrograde pyelograms was performed through the ureteroscope to ensure all the calyces were evaluated. On fluoroscopy there is no additional radiopaque densities. At this time pullback ureteroscopy was performed which showed no injury to the ureter or any ureteral stones, as ureteroscope was withdrawn and a sensor wire was advanced through. Next a ureteral stent was passed over the wire, the proximal curl was visualized on fluoroscopy and the distal curl was visualized using the cystoscope. The bladder was emptied at the end of the case. Patient tolerated procedure with stent recovery in stable condition. Stent was left on a string and taped to the patient thigh
[2024-02-07 13:06] VITALS: TEMP 97
[2024-02-07] MEDS: LACTATED RINGERS 1,000 ML IV ONE (13:17)
--- NOTE | 2024-02-07 13:17 | FL ---
Fluoroscopy INDICATION: Pain FINDINGS: Fluoroscopy time: 54 seconds. Total dose area product (DAP) in uGy*m?, mGy*cm? (or similar): 0.71424 Images obtained: 11. IMPRESSION: 1. Documentation of fluoroscopy.
[2024-02-07 13:41] VITALS: RESP 16
[2024-02-07 14:52] VITALS: BP 114/74; PULSE 76
== END 2024-02-07 13:52 | disposition home or self-care (01) ==
LOC: OR 11:07
PROVIDERS: ATTEND Urology
DX: N13.2 Hydronephrosis with renal and ureteral calculous obstruction (principal); J45.909 Unspecified asthma, uncomplicated; Z79.84 Long term (current) use of oral hypoglycemic drugs; Z88.5 Allergy status to narcotic agent; Z88.6 Allergy status to analgesic agent; Z88.8 Allergy status to other drugs, medicaments and biological substances; Z87.891 Personal history of nicotine dependence
CPT/HCPCS: 81025; 82365; 74420; 74018; 52356; C2625; C1758; C1769; J2250; J0330; J1100; J0690; J2405; J2001; J3010; J2704; Q9967; J2371

== ENCOUNTER 2024-02-07 23:05 | Emergency (ER) | payer BC, OTHER ==
[2024-02-07 23:33] VITALS: TEMP 98.6
--- NOTE | 2024-02-07 23:57 | ED ---
Abdominal Pain HPI - General Source: patient Mode of arrival: wheelchair Limitations: no limitations <Macrina Lewis - Last Filed: 02/07/24 23:55> <Dale Zamorano - Last Filed: 02/08/24 02:57> - General Chief Complaint: Abdominal Pain Stated Complaint: Post op complications Time Seen by Provider: 02/07/24 23:55 - History of Present Illness Initial Comments: 28-year-old female presenting with complaint of right flank pain. Patient had ureteral stent placement with Dr. Polk earlier today. States that the stent fell out this evening. Admits to nausea and vomiting (Macrina Lewis) Dictation was produced using [employer] dictation software. please excuse any grammatical, word or spelling errors. Chief Complaint: 28-year-old female with accidental dislodgment of ureteral stent History of Present Illness: Patient 28-year-old female she had a urologic procedure done with Dr. Lopez to treat kidney stones. She was discharged in stable medical addition. She had a string attached to ureteral stent. Patient states that she moved in a strange direction which pulled on the strings dislodging the ureteral stent from its placement. She then went to urinate and stent was fully removed. Patient complaining of some pain nausea and vomiting. The ROS documented in this emergency department record has been reviewed and confirmed by me. Those systems with pertinent positive or negative responses have been documented in the HPI. All other systems are other negative and/or noncontributory. (Dale Zamorano) - Related Data Previous Rx's Medication Instructions Recorded Cephalexin [Keflex] 500 mg PO Q8HR #15 cap 02/07/24 Ketorolac [Toradol] 10 mg PO Q6HR PRN #15 tab 02/07/24 Allergies Allergy/AdvReac Type Severity Reaction Status Date / Time acetaminophen [From Vicodin] AdvReac Nausea & Verified 02/07/24 23:10 Vomiting hydrocodone bitartrate AdvReac Nausea & Verified 02/07/24 23:10 [From Vicodin] Vomiting metformin AdvReac Swelling Verified 02/07/24 23:10 morphine AdvReac Nausea & Verified 02/07/24 23:10 Vomiting Review of Systems ROS Other: All systems not noted in ROS Statement are negative. <Macrina Lewis - Last Filed: 02/07/24 23:55> ROS Other: All systems not noted in ROS Statement are negative. <Dale Zamorano - Last Filed: 02/08/24 02:57> ROS Statement: Those systems with pertinent positive or pertinent negative responses have been documented in the HPI. Past Medical History Past Medical History: Asthma Additional Past Medical History / Comment(s): PCOS, kidney stones History of Any Multi-Drug Resistant Organisms: None Reported Past Surgical History: Section, Cholecystectomy Additional Past Surgical History / Comment(s): [place] teeth removal, C-SEC X 2, lithotripsy Past Anesthesia/Blood Transfusion Reactions: No Reported Reaction Past Psychological History: Anxiety, Depression Smoking Status: Former smoker Past Alcohol Use History: None Reported Past Drug Use History: Marijuana - Past Family History Mother History Unknown: Yes Family Medical History: No Reported History Additional Family Medical History / Comment(s): HHX UNKNOWN-PT ADOPTED <Macrina Lewis - Last Filed: 02/07/24 23:55> General Exam Limitations: no limitations <Macrina Lewis - Last Filed: 02/07/24 23:55> <Dale Zamorano - Last Filed: 02/08/24 02:57> - General Exam Comments Initial Comments: Visual Physical Exam Vital signs reviewed General: Well-appearing, nontoxic, no acute distress. Head: Normocephalic, atraumatic Eyes: PERRLA, EOMI ENT: Airway patent Chest: Nonlabored breathing Skin: No visual rash, normal skin tone Neuro: Alert and oriented 3 Musculoskeletal: No gross abnormalities (Macrina Lewis) PHYSICAL EXAM: General Impression: Alert and oriented x3, not in acute distress HEENT: Normocephalic atraumatic, extra-ocular movements intact, pupils equal and reactive to light bilaterally, mucous membranes moist. Cardiovascular: Heart regular rate and rhythm Chest: Able to complete full sentences, no retractions, no tachypnea Abdomen: abdomen soft, non-tender, non-distended, no organomegaly Musculoskeletal: Pulses present and equal in all extremities, no peripheral edema Motor: no focal deficits noted Neurological: CN II-XII grossly intact, no focal motor or sensory deficits noted Skin: Intact with no visualized rashes Psych: Normal affect and mood (Dale Zamorano) Course Vital Signs 02/07/24 23:07 Temperature 98.6 F Pulse Rate 62 Respiratory 22 Rate Blood Pressure 146/82 O2 Sat by Pulse 99 Oximetry Medical Decision Making <Macrina Lewis - Last Filed: 02/07/24 23:55> <Dale Zamorano - Last Filed: 02/08/24 02:57> - Medical Decision Making I performed the quick note portion of this visit, electronically signed Macrina Lewis PA-C (Macrina Lewis) Was pt. sent in by a medical professional or institution ([facility] Troncoso, [employer], urgent care, hospital, or group home...) When possible be specific @ -No Did you speak to anyone other than the patient for history (EMS, parent, family, police, friend...)? What history was obtained from this source @ -No Did you review nursing and triage notes (agree or disagree)? Why? @ -I reviewed and agree with nursing and triage notes Were old charts reviewed (outside hosp., previous admission, EMS record, old EKG, old radiological studies, urgent care reports/EKG's, group home records)? Report findings @ -No old charts were reviewed Differential Diagnosis (chest pain, altered mental status, abdominal pain women, abdominal pain men, vaginal bleeding, musculoskeletal, weakness, fever, dyspnea, syncope, headache, dizziness, GI bleed, back pain, seizure, CVA, palpatations, mental health)? @ -Not applicable EKG interpreted by me (3pts min.). @ -None done X-rays interpreted by me (1pt min.). @ -None done CT interpreted by me (1pt min.). @ -CT of the abdomen pelvis shows no acute processes U/S interpreted by me (1pt. min.). @ -None done What testing was considered but not performed or refused? (CT, X-rays, U/S, labs)? Why? @ -None What meds were considered but not given or refused? Why? @ -None Did you discuss the management of the patient with other professionals (pr ofessionals i.e. SHAHLA Troncoso, [employer], lab, RT, psych nurse, rn social work, doughnut icer, teacher, chief innovation officer, case preparer and liner)? Give summary @ -No Was smoking cessation discussed for >3mins.? @ -No Was critical care preformed (if so, how long)? @ -No Were there social determinants of health that impacted care today? How? (Homelessness, low income, unemployed, alcoholism, drug addiction, transportation, low edu. Level, literacy, decrease access to med. care, usp, rehab)? @ -No Was there de-escalation of care discussed even if they declined (Discuss DNR or withdrawal of care, Hospice)? DNR status @ -No What co-morbidities impacted this encounter? (DM, HTN, Smoking, COPD, CAD, Cancer, CVA, ARF, Chemo, Hep., AIDS, mental health diagnosis, sleep apnea, morbid obesity)? @ -None Was patient admitted / discharged? Hospital course, mention meds given and route, prescriptions, significant lab abnormalities, going to OR and other pertinent info. @ -28-year-old female presents to the emergency department with accidental dislodgment of right-sided ureteral stent. Vital signs stable. Patient experiencing some acceptable level of postoperative pain. CT was ordered by triage provider. CT is unremarkable for any acute processes. Patient feels improved with antinausea and pain medications. Patient agreeable for discharge. She is told to contact her urologist for [place] in the morning. Undiagnosed new problem with uncertain prognosis? @ -No Drug Therapy requiring intensive monitoring for toxicity (Heparin, Nitro, Insulin, Cardizem)? @ -No Were any procedures done? @ -No Diagnosis/symptom? Acute, or Chronic, or Acute on Chronic? Uncomplicated (without systemic symptoms) or Complicated (systemic symptoms)? @ -Accidental dislodgment of ureteral stent Side effects of treatment? @ -No Exacerbation, Progression, or Severe Exacerbation? @ -No Poses a threat to life or bodily function? How? (Chest pain, [place], [place], pneumonia, PE, COPD, DKA, ARF, appy, cholecystitis, CVA, Diverticulitis, Homicidal, Suicidal, threat to staff... and all critical care pts) @ -No (Dale Zamorano) - Lab Data Lab Results 02/07/24 Range/Units 23:21 Urine Color Light Red Urine Appearance Cloudy H (Clear) Urine pH 5.5 (5.0-8.0) Ur Specific [place] 1.025 (1.001-1.035) Urine Protein 1+ H (Negative) Urine Glucose (UA) Negative (Negative) Urine Ketones 1+ H (Negative) Urine Blood Large H (Negative) Urine Nitrite Negative (Negative) Urine Bilirubin Negative (Negative) Urine Urobilinogen <2.0 (<2.0) mg/dL Ur Leukocyte Esterase Moderate H (Negative) Urine RBC >182 H (0-5) /hpf Urine WBC 19 H (0-5) /hpf Ur Squamous Epith Cells 19 H (0-4) /hpf Urine Bacteria Rare H (None) /hpf Hyaline Casts 17 H (0-2) /lpf Urine Mucus Occasional H (None) /hpf Urine Yeast (Budding) Many H (None) /hpf Disposition <Macrina Lewis - Last Filed: 02/07/24 23:55> Is patient prescribed a controlled substance at d/c from ED?: No Time of Disposition: 02:57 <Dale Zamorano - Last Filed: 02/08/24 02:57> Clinical Impression: Ureteral stent displacement Disposition: HOME SELF-CARE Condition: Good Referrals: Jaime Lopez MD [STAFF PHYSICIAN] - 1-2 days
[2024-02-08 00:12] LABS: Appearance,Urine Cloudy (Clear); Bacteria,Urine Rare /hpf; Bilirubin,Urine Negative (Negative); Blood,Urine Large (Negative); Budding Yeast,Urine Many /hpf; Color,Urine Light Red; Glucose,Urine (UA) Negative (Negative); Hyaline Casts,Urine 17 /lpf (0-2); Ketones,Urine 1+ (Negative); Leukocyte Esterase,Urine Moderate (Negative); Mucus,Urine Occasional /hpf; Nitrite,Urine Negative (Negative); PH, Urine 5.5 (5.0-8.0); Protein,Urine 1+ (Negative); RBC,Urine >182 /hpf (0-5); Specific Gravity,Urine 1.025 (1.001-1.035); Squamous Epithelial Cell,Urine 19 /hpf (0-4); Urobilinogen,Urine <2.0 mg/dL (<2.0); WBC,Urine 19 /hpf (0-5)
--- NOTE | 2024-02-08 01:52 | CT ---
EXAM: CT Abdomen and Pelvis Without Intravenous Contrast CLINICAL HISTORY: ITS.REASON CT Reason: flank pain TECHNIQUE: Axial computed tomography images of the abdomen and pelvis without intravenous contrast. CTDI is 12.9 mGy and DLP is 721.7 mGy-cm. This CT exam was performed using one or more of the following dose reduction techniques: automated exposure control, adjustment of the mA and/or kV according to patient size, and/or use of iterative reconstruction technique. COMPARISON: No relevant prior studies available. FINDINGS: Lung bases: Unremarkable. No mass. No consolidation. ABDOMEN: Liver: Hepatic steatosis. Gallbladder and bile ducts: Cholecystectomy. No ductal dilation. Pancreas: Unremarkable. No ductal dilation. Spleen: Unremarkable. No splenomegaly. Adrenals: Unremarkable. No mass. Kidneys and ureters: Moderate hydronephrosis of the right kidney, without obstructing stone. Findings are concerning for recently passed stone. Note, there is a focus of air in the proximal ureter, correlate for recent intervention. Recommend CT scan with contrast if there is any concern for pyelonephritis. Multiple nonobstructing left sided renal stones measuring approximately 2-4 mm in size. Stomach and bowel: Unremarkable. No obstruction. No mucosal thickening. PELVIS: Appendix: No findings to suggest acute appendicitis. Bladder: Wall thickening of the urinary bladder, correlate for UTI. No stones. Reproductive: Tubal ligation. ABDOMEN and PELVIS: Intraperitoneal space: Unremarkable. No free air. No significant fluid collection. Bones/joints: No acute fracture. No dislocation. Soft tissues: Unremarkable. Vasculature: Unremarkable. No abdominal aortic aneurysm. Lymph nodes: Unremarkable. No enlarged lymph nodes. IMPRESSION: 1. Moderate hydronephrosis of the right kidney, without obstructing stone. Findings are concerning for recently passed stone. Note, there is a focus of air in the proximal ureter, correlate for recent intervention. Recommend CT scan WITH CONTRAST if there is any concern for pyelonephritis. 2. Wall thickening of the urinary bladder, correlate for UTI. 3. Multiple nonobstructing left sided renal stones measuring approximately 2-4 mm in size.
[2024-02-08] MEDS: ONDANSETRON 4 MG/2 ML VIAL IVP STA (01:56)
[2024-02-08] MEDS: KETOROLAC 15 MG/ML 1 ML VIAL IVP STA (01:57)
[2024-02-08] MEDS: ONDANSETRON 4 MG ODT STARTER PACK 2 TAB BTL PO STA (03:05)
[2024-02-08] MEDS: traMADol 50 MG STARTER PACK 3 TAB BTL PO STA (03:05)
[2024-02-08 03:44] VITALS: BP 138/76; PULSE 68; RESP 16
== END 2024-02-08 03:19 | disposition home or self-care (01) ==
LOC: EC 23:05
DX: Z96.0 Presence of urogenital implants (principal); N13.2 Hydronephrosis with renal and ureteral calculous obstruction; F12.90 Cannabis use, unspecified, uncomplicated; Z87.891 Personal history of nicotine dependence; Z88.5 Allergy status to narcotic agent; Z88.8 Allergy status to other drugs, medicaments and biological substances
CPT/HCPCS: 81001; 87086; 74176; 99284; 96374; 96375; J2405; J1885; S0119